=== PATIENT | female | born 1945 | race Caucasian/White ===

== ENCOUNTER → 2019-11-03 10:47 | Outpatient (BNVA) | payer MEDICARE, MEDICAID, SELFPAY | PROVIDERS: Family Provider Nurse Practitioner Family; PCP Nurse Practitioner Family; Visit Provider Nurse Practitioner | DX: M10.9 Gout, unspecified (principal) | CPT/HCPCS: 36415; 84550 ==

== ENCOUNTER → 2020-01-09 09:17 | Outpatient (BNVA) | payer MEDICARE, MEDICAID, SELFPAY | PROVIDERS: Family Provider Nurse Practitioner Family; PCP Nurse Practitioner Family; Visit Provider Nurse Practitioner Family | DX: E78.2 Mixed hyperlipidemia (principal); E11.9 Type 2 diabetes mellitus without complications; M10.9 Gout, unspecified; R53.83 Other fatigue; R94.6 Abnormal results of thyroid function studies; I10 Essential (primary) hypertension; E55.9 Vitamin D deficiency, unspecified | CPT/HCPCS: 80053; 80061; 81001; 82306; 83036; 84443; 84550; 85025 ==

== ENCOUNTER → 2020-02-13 13:18 | Outpatient (BNVA) | payer MEDICARE, MEDICAID, SELFPAY | PROVIDERS: Family Provider Nurse Practitioner Family; PCP Nurse Practitioner Family; Visit Provider Obstetrics & Gynecology | DX: N81.10 Cystocele, unspecified (principal); N81.9 Female genital prolapse, unspecified | CPT/HCPCS: 81000 ==

== ENCOUNTER → 2020-04-08 09:47 | Outpatient (BNVA) | payer MEDICARE, MEDICAID, SELFPAY | PROVIDERS: PCP Nurse Practitioner Family; Visit Provider Nurse Practitioner Family | DX: E11.9 Type 2 diabetes mellitus without complications (principal); I10 Essential (primary) hypertension; E78.2 Mixed hyperlipidemia; E55.9 Vitamin D deficiency, unspecified | CPT/HCPCS: 36415; 80053; 80061; 81001; 82306; 83036; 84443; 85025 ==

== ENCOUNTER 2020-05-15 14:30 | Outpatient (CLI) | payer MEDICARE, MEDICAID, SELFPAY ==
--- NOTE | 2020-05-15 14:35 | MM_ITS ---
WS: [id number] BILATERAL DIGITAL SCREENING MAMMOGRAPHY WITH CAD CLINICAL INFORMATION: SCREENING HISTORY: Screening mammogram. No current complaints. COMPARISON: April 26, 2019 TECHNIQUE: Bilateral CC and MLO views. FINDINGS: Scattered fibroglandular densities bilaterally. No suspicious focal mass, asymmetry, calcifications, or architectural distortion. No evidence of malignancy. Stable clustered calcifications left breast. MM/[id number] IMPRESSION: BI-RADS: 2-Benign FOLLOW UP: 1 Year Follow-up Recommend return to annual screening mammography.
== END 2020-05-15 14:31 | disposition home or self-care (01) ==
PROVIDERS: PCP Nurse Practitioner Family; Visit Provider Nurse Practitioner Family
DX: Z12.31 Encounter for screening mammogram for malignant neoplasm of breast (principal)
CPT/HCPCS: 77067

== ENCOUNTER → 2020-10-29 10:07 | Outpatient (BNVA) | payer MEDICARE, MEDICAID, SELFPAY | PROVIDERS: PCP Nurse Practitioner Family; Visit Provider Nurse Practitioner Family | DX: I10 Essential (primary) hypertension (principal); E11.9 Type 2 diabetes mellitus without complications; E55.9 Vitamin D deficiency, unspecified; E78.2 Mixed hyperlipidemia; M1A.09X0 Idiopathic chronic gout, multiple sites, without tophus (tophi) | CPT/HCPCS: 80053; 80061; 81003; 82306; 83036; 84443; 84550; 85025 ==

== ENCOUNTER → 2021-02-12 10:31 | Outpatient (BNVA) | payer MEDICARE, MEDICAID, SELFPAY | PROVIDERS: PCP Nurse Practitioner Family; Visit Provider Family Medicine | DX: E11.42 Type 2 diabetes mellitus with diabetic polyneuropathy (principal); R01.1 Cardiac murmur, unspecified; Z01.818 Encounter for other preprocedural examination | CPT/HCPCS: 71046 ==

== ENCOUNTER 2021-03-19 12:33 | Outpatient (CLI) | payer MEDICARE, MEDICAID, SELFPAY ==
--- NOTE | 2021-03-19 13:30 | USCV_ITS ---
Renuka Boyd Age: 76 Gender: F : 1945 Exam Date: 03/19/2021 13:14 Ordering Phys: Parish Reilly MD Technologist: Exam Location: [facility] [place] Indication: SOB BP: 125 / 76 HR: 53 Rhythm: Sinus Technical Quality: Adequate MEASUREMENTS (Male / Female) Normal Values 2D ECHO LV Diastolic Diameter PLAX 4.6 cm 4.2 - 5.9 / 3.9 - 5.3 cm LV Systolic Diameter PLAX 2.9 cm IVS Diastolic Thickness 1.1 cm 0.6 - 1.0 / 0.6 - 0.9 cm IVS Systolic Thickness 1.5 cm LVPW Diastolic Thickness 1.0 cm 0.6 - 1.0 / 0.6 - 0.9 cm LVPW Systolic Thickness 1.7 cm LVOT Diameter 2.0 cm LV Ejection Fraction 2D Teich 65.6 % LV Ejection Fraction MOD 2C 55.4 % LV Ejection Fraction 2C AL 56.1 % LA Diameter 3.8 cm LA Width 3.3 cm LA Height 4.3 cm RA Width 3.6 cm RA Height 4.4 cm Aorta at Sinotubular Diameter 2.3 cm M-MODE Aortic Annulus Diameter 2.9 cm LA Ao Ratio MM 1.3 DOPPLER AV Peak Velocity 97.0 cm/s LVOT Peak Velocity 59.0 cm/s AV Area Cont Eq vti 2.0 cm squared AV Area Cont Eq pk 2.0 cm squared MV Area PHT 5.0 cm squared Mitral E to A Ratio 1.0 MV E' Velocity 39.5 cm/s Mitral E to MV E' Ratio 9.9 Mitral E to LV E' Lateral Ratio 8.7 Mitral E to LV E' Septal Ratio 11.5 TR Peak Velocity 131.7 cm/s TR Peak Gradient 6.9 mmHg TV Peak E Velocity 108.0 cm/s Right Atrial Pressure 3.0 mmHg Pulmonary Artery Systolic Pressu 9.9 mmHg FINDINGS Left Ventricle Normal left ventricular size. LV systolic function is normal with EF of 50-55%.No regional wall motion abnormalities. Diastolic function is abnormal Right Ventricle The right ventricle is normal in size and function. Right Atrium The right atrium is normal in size. Left Atrium The left atrium is normal in size. Mitral Valve Grossly normal significant stenosis or prolapse. There is trace mitral regurgitation. Aortic Valve Grossly normal without significant stenosis. There is no aortic regurgitation. Tricuspid Valve Structurally normal tricuspid valve without significant stenosis or regurgitation. Insufficient TR jet to calculate RVSP Pulmonic Valve Structurally normal pulmonic valve without significant stenosis. There is no pulmonic regurgitation. Pericardium Normal pericardium without effusion. Aorta Normal ascending aorta dimension. CONCLUSIONS LV systolic function is normal with EF of 50-55% Diastolic function is abnormal Trace mitral regurgitation Compared to prior echocardiogram from 07/05/2014, no significant changes are noted Pete Isaac MD (Electronically Signed) Final Date: 19 March 2021 16:56 S
== END 2021-03-19 12:34 | disposition home or self-care (01) ==
LOC: RAD 12:39
PROVIDERS: PCP Nurse Practitioner Family; Visit Provider Family Medicine
DX: E11.42 Type 2 diabetes mellitus with diabetic polyneuropathy (principal); R01.1 Cardiac murmur, unspecified; R06.02 Shortness of breath
CPT/HCPCS: 93306

== ENCOUNTER → 2021-03-20 09:21 | Outpatient (BNVA) | payer MEDICARE, MEDICAID, SELFPAY | PROVIDERS: PCP Nurse Practitioner Family; Visit Provider Obstetrics & Gynecology | DX: N81.9 Female genital prolapse, unspecified (principal) | CPT/HCPCS: 87635 ==

== ENCOUNTER 2021-03-26 09:43 | Observation (INO) | payer MEDICARE, MEDICAID, SELFPAY ==
[2021-03-24 10:05] VITALS: BMI 29.6
--- NOTE | 2021-03-24 10:30 | P.ANESASSM_ITS ---
Pre-Anesthetic Assessment Pre-Anesthetic Assessment: Height/Weight: Height 1.7 m Weight 85.729 kg Preop Diagnosis: Vaginal vault prolapse stage 3 Proposed Procedure: Operation Date: 03/26/21 07:00 Proposed Procedures p Anterior Repair Anterior Colporrhaphy [id number] N81.9(Not Applicable) - MD meena Simpson Posterior Repair Posterior Colporrhaphy(Not Applicable) - MD meena Simpson Midurethral single incision sling(Not Applicable) - Lamberto Mart MD s Sacrospinous ligament fixation(Not Applicable) - Lamberto Mart MD Familial anesthetic complications: None Social: Social History: No alcohol and No tobacco Exam: Pre-Anes Outpt Exam: alert, oriented x 3, clear to auscultation bilaterally and regular rate & rhythm Airway: Cervical ROM: WNL MP: 3 Dentition: False CV/HEM: CV/HEM: HTN Comments: Echo 03/26 CONCLUSIONS LV systolic function is normal with EF of 50-55% Diastolic function is abnormal Trace mitral regurgitation Compared to prior echocardiogram from 07/05/2014, no significant changes are noted Knee pain prevents achieving 4 METS Metabolic: Metabolic: DM and Hyperlipidemia Anesthetic Plan: ASA status: 2 Anesthesia: General Risk of > 500 ml blood loss (7ml/kg in children): No PFSH Anesthesia PFSH: Medical History Abnormal results of thyroid function studies Chronic kidney disease, stage 3 (moderate) Diabetes mellitus, type II Patient is currently controlled with oral medications. Her last A1C in 08/24 was 6.9. Essential hypertension Gout Lower respiratory infection Mixed hyperlipidemia Restless legs syndrome S/p nephrectomy left Vaginal prolapse Vitamin D deficiency Surgical History S/P bladder repair over 40 years ago, [place] S/P hysterectomy S/P left knee arthroscopy Family History Brother Diabetes Hypertension Heart disease Family/Other Diabetes paternal aunt Breast cancer, Onset Age: 80 paternal aunt Father Hyperlipidemia Hypertension Heart disease Sister Stroke Daughter Thyroid condition Denies family history of Colon cancer Ovarian cancer CAD (coronary artery disease) Clotting disorder Anesthesia complication Bleeding disorder Uterine cancer Social History (Updated 03/24/21 @ 07:48 by Andie Machado RN) Smoking and tobacco status: former smoker Quit status (tobacco): has quit using tobacco Year quit tobacco: 1966 Alcohol intake: never Substance/Drug Use: never Data Anesthesia Cardiac Studies: No Data to Display
[2021-03-24 10:49] LABS: Add Urine Microscopic? NO; Charge for UA Resulting for Rev
[2021-03-24 10:59] LABS: Basophils % 0.6 %; Eosinophils # 0.1 10^3/uL (0.0-0.8); Eosinophils % 2.4 %; Hematocrit 46.2 % (37.0-47.0); Hemoglobin 15.1 g/dL (11.5-15.3); Lymphocytes % 37.4 %; Mean Corpuscular HGB Conc 32.7 g/dL (30.0-36.0); Mean Corpuscular Hemoglobin 29.7 pg (28.0-34.0); Mean Corpuscular Volume 90.8 fL (81-99); Mean Platelet Volume 9.3 fL (7.4-10.4); Monocytes # 0.5 10^3/uL (0.2-0.9); Neutrophils # 2.74 10^3/uL (1.8-7.7); Neutrophils % 50.4 %; Nucleated Red Blood Cells % 0 %; Platelet Count 230 10^3/cmm (130-400); Red Blood Count 5.09 10^6/uL (4.1-5.3); Red Cell Distribution Width 12.9 % (12.1-15.1); White Blood Count 5.4 10^3/uL (4.0-10.0)
[2021-03-24 11:08] LABS: Bilirubin Urine Neg (Negative); Blood Urine Neg (Negative); Glucose Urine UA Norm (Normal); Ketones Urine Negative (Negative); Leukocyte Esterase Urine Negative (Negative); Nitrate Urine Negative (Negative); Protein Urine Neg (Negative); Urine Appearance Clear (CLEAR); Urine Color Straw (Yellow); Urobilinogen Urine Norm (Negative); pH Urine 5 (5-7)
[2021-03-24 11:12] LABS: INR 0.97 (0.8-1.2)
[2021-03-24 11:18] LABS: Alanine Aminotransferase 17 U/L (0-33); Albumin Level 4.2 g/dL (3.5-5.2); Alkaline Phosphatase 83 IU/L (35-105); Anion Gap 13.9 (5-19); Aspartate Amino Transferase 20 U/L (0-32); Blood Urea Nitrogen 18 mg/dL (8-23); Calcium 9.4 mg/dL (8.5-10.5); Carbon Dioxide 27 mmol/L (22-29); Chloride 104 mmol/L (98-107); Globulin 2.6 g/dL (1.3-4.6); Glucose 119 mg/dL (65-115); Osmolality Calculated 293 mOsm/kg (285-295); Potassium 4.9 mmol/L (3.5-5.1); Sodium 140 mmol/L (136-145); Total Bilirubin 0.3 mg/dL (0.15-1.2); Total Protein 6.8 g/dL (6.6-8.7)
[2021-03-26] VITALS (14 sets, daily range): BP systolic 105–155; BP diastolic 54–85; PULSE 43–70; RESP 15–18; TEMP 36.4–37.1; O2SAT 97–100; BMI 29.6
--- NOTE | 2021-03-26 05:48 | ECG_ITS ---
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 Measurements Intervals Senath Rate: 56 P: 90 AR: 185 QRS: -8 QRSD: 85 T: 43 QT: 450 QTc: 437 Interpretive Statements SINUS BRADYCARDIA No previous ECG available for comparison Electronically Signed On 03-26-2021 18:36:08 CDT by Pete Isaac M.D. [id number]
[2021-03-26 06:18] LABS: Glucose Point of Care 118 mg/dL (70-110)
--- NOTE | 2021-03-26 06:27 | ANES.PAUD2 ---
Pre-Anesthetic Update Pre-Anesthetic Assessment: Date of Surgery/Procedure: 03/26/21 Preop Diagnosis: Vaginal vault prolapse stage 3 Proposed Procedure: Operation Date: 03/26/21 07:00 Proposed Procedures p Anterior Repair Anterior Colporrhaphy [id number] N81.9(Not Applicable) - Lamberto Mart MD s Posterior Repair Posterior Colporrhaphy(Not Applicable) - Lamberto Mart MD s Midurethral single incision sling(Not Applicable) - Lamberto Mart MD s Sacrospinous ligament fixation(Not Applicable) - Lamberto Mart MD Last Intake: Intake Last Liquid Date 03/25/21 Last Liquid Time 13:30 Last Solid Date 03/25/21 Last Solid Time 16:30 Labs Last 48hrs: Laboratory Results - last 48 hr 03/24/21 03/24/21 03/24/21 09:57 10:20 10:20 WBC 5.4 RBC 5.09 Hgb 15.1 Hct 46.2 MCV 90.8 MCH 29.7 MCHC 32.7 RDW 12.9 Plt Count 230 MPV 9.3 Neut % (Auto) 50.4 Lymph % (Auto) 37.4 [place] % (Auto) 9.0 Eos % (Auto) 2.4 Baso % (Auto) 0.6 Neut # (Auto) 2.74 Lymph # (Auto) 2.0 [place] # (Auto) 0.5 Eos # (Auto) 0.1 Baso # (Auto) 0.0 Nucleated RBC % (a uto) 0 Nucleated RBCs # 0.0 PT INR Sodium 140 Potassium 4.9 Chloride 104 Carbon Dioxide 27 Anion Gap 13.9 BUN 18 Creatinine 0.8 GFR Calculation Not Reportable Glucose 119 H POC Glucose Calculated Osmolal ity 293 Calcium 9.4 Total Bilirubin 0.3 AST 20 ALT 17 Alkaline Phosphata se 83 Total Protein 6.8 Albumin 4.2 Globulin 2.6 Urine Color Straw Urine Appearance Clear Urine pH 5 Ur Specific Gravit y 1.010 Urine Protein Neg Urine Glucose (UA) Norm Urine Ketones Negative Urine Blood Neg Urine Nitrate Negative Urine Bilirubin Neg Urine Urobilinogen Norm Ur Leukocyte [place] Negative Blood Type Rho(D) Type Antibody Screen 03/24/21 03/24/21 03/26/21 10:20 10:20 06:14 WBC RBC Hgb Hct MCV MCH MCHC RDW Plt Count MPV Neut % (Auto) Lymph % (Auto) [place] % (Auto) Eos % (Auto) Baso % (Auto) Neut # (Auto) Lymph # (Auto) [place] # (Auto) Eos # (Auto) Baso # (Auto) Nucleated RBC % (a uto) Nucleated RBCs # PT 13.20 INR 0.97 Sodium Potassium Chloride Carbon Dioxide Anion Gap BUN Creatinine GFR Calculation Glucose POC Glucose 118 H Calculated Osmolal ity Calcium Total Bilirubin AST ALT Alkaline Phosphata se Total Protein Albumin Globulin Urine Color Urine Appearance Urine pH Ur Specific Gravit y Urine Protein Urine Glucose (UA) Urine Ketones Urine Blood Urine Nitrate Urine Bilirubin Urine Urobilinogen Ur Leukocyte Beth ase Blood Type O Negative Rho(D) Type Negative / 0 Antibody Screen Negative Vitals: Temperature 97.6 F 03/26/21 05:56 Temperature Source Temporal Artery S can 03/26/21 05:56 Pulse Rate 61 03/26/21 05:56 Pulse Rhythm 03/26/21 05:57 Pulse Strength 3+ Normal 03/26/21 05:57 Respiratory Rate 18 03/26/21 05:56 Blood Pressure 155/85 03/26/21 05:56 Blood Pressure Ayleen n 108 03/26/21 05:56 Pulse Oximetry 97 03/26/21 05:56 Oxygen Delivery Me thod 03/26/21 05:56 Other Pertinent Information: Other Pertinent Information: NPO greater than 8 hours, no new issues Cardiac Studies: No Data to Display
[2021-03-26] MEDS: sodium chloride 0.9% 500 ML IV (06:30)
[2021-03-26] MEDS: enoxaparin 30 mg/0.3 mL Syringe SUBCUT (06:32)
[2021-03-26] MEDS: scopolamine 1.5 Patch 1 PATCH TRANSDERMA (06:35)
--- NOTE | 2021-03-26 06:58 | W.PM.OPSUD ---
Surgery/Procedure H&P Update DATE OF PROCEDURE: March 26, 2021 DATE H&P PERFORMED: 03/24/21 H&P UPDATE INFORMATION: I have reviewed H&P completed within last 30 days, I have examined patient prior to procedure and No changes to prior documentation PREOP DIAGNOSIS: Vaginal vault prolapse stage 3 PLANNED PROCEDURE: Operation Date: 03/26/21 07:00 Proposed Procedures p Anterior Repair Anterior Colporrhaphy [id number] N81.9(Not Applicable) - Lamberto Mart MD s Posterior Repair Posterior Colporrhaphy(Not Applicable) - Lamberto Mart MD s Midurethral single incision sling(Not Applicable) - Lamberto Mart MD s Sacrospinous ligament fixation(Not Applicable) - Lamberto Mart MD
[2021-03-26] MEDS: sodium chloride 0.9% 1,000 ML 30 ML IV (07:03)
[2021-03-26] MEDS: estrogens Conjugated Cream 30 gm 1 APPLIC VAGINAL (09:28)
--- NOTE | 2021-03-26 09:39 | P.OP_ITS ---
Operative Report Date of procedure: March 26, 2021 Pre-op Diagnosis: Vaginal vault prolapse stage 3 Post-op diagnosis: same Procedure Done: Anterior colporrhaphy augmented with allograft. Single incision mid urethral sling. Posterior colporrhaphy. Sacrospinous fixation. Cystoscopy. Surgeon: Lamberto Mart MD Anesthesia: General Estimated blood loss (mL): 50 IV fluids (mL): 1,200 Urine output (mL): 200 Complications: None Condition: stable Disposition: PACU Brief History: 76-year-old female 58-year-old female with vaginal vault prolapse stage III Procedure: After obtaining informed consent, the patient was taken to the operating room and placed in the supine position, given general anesthesia, and prepped and draped in sterile fashion. The abdomen, vulva and vagina were prepped and draped in a sterile manner. A time out procedure was performed. The anterior vaginal mucosa beneath the midurethra was infiltrated with 0.5% Marcaine with epinephrine. A vertical midline incision was made beneath the midurethra, nearly 1.5 cm length. Careful submucosal dissection was performed bilaterally up to the interior portion of the inferior pubic ramus. The insertion of adductor longus tendon on the patient?s pubic ramus was identified as reference land cathryn. Palpated the notch along the internal edge of ischiopubic ramus where the adductor longus tendon and the inferior pubic ramus meet. The Altis single incision sling (SIS) was selected. With thin porcine graft the mesh of the sling was lined anteriorly and posteriorly with the graft. Then the needle of the SIS inserted aiming at the location of this notch. One of the integrated self-fixating tips place onto the needle by sliding it over the end of the needle. The needle/sling assembly was inserted toward the location of identified reference notch making sure that the flat of the handle is perpendicular to the desired path. The needle was tracked along the posterior surface of the ischiopubic ramus until the midline cathryn on the mesh is approximately at the midline position under the urethra. The needle was removed and the same was repeated on the contralateral side until the appropriate sling tension under the urethra was achieved ensuring that the mesh lays flat. The needle was removed and vaginal incision was closed in a running interlocking fashion with 2-0 Vicryl. The vaginal mucosa was then injected in the midline with normal saline. The vaginal mucosa was scored in the midline with the Bovie approximately 1 cm medi al to the urethral meatus to 1 cm distal to the vaginal cuff. This vaginal mucosa was then undermined and then incised in the midline with the Metzenbaum scissors. The lateral aspects of the vaginal mucosa were then grasped with the Allis clamps and the vaginal mucosa was then dissected off the underlying fascia with the Metzenbaum scissors. Again, there was noted to be quite a bit of oozing at the incision, which was controlled with cautery. After adequate dissection was performed, bilaterally. An ACell MatriStem Pelvic Floor Matrix is modified at time of application to fit spacea, 3 x 4 cm piece . MatriStem PFM placed in front of cystocele ready to be implanted with the Basement Membrane facing the vagina mucosa. Suture is placed at distal end of graft and placed towards vaginal cuff. Final suture is placed on proximal portion of the graft to complete the placement overlying the bladder. Then Interrupted vertical mattress sutures of 0 Vicryl were used to elevate the cystocele superiorly. The excessive vaginal mucosa was then trimmed with the Metzenbaum scissors and the vaginal mucosa was then reapproximated in the running interlocking fashion with 2-0 Vicryl. Then the posterior vaginal mucosa is opened in the routine fashion as described previously in Posterior Repair. A finger is inserted through the incision in the posterior vaginal mucosa, dissecting out the rectovaginal space (RVS). The right rectal pillar (RRP) is identified. The rectal pillar can be bluntly perforated either with the finger and with the tip of a long Meeta clamp. A Breliny- Navjazlyn retractor is used for exposing the rectovaginal space in order to enter the pararectal space with retraction of the cardinal ligament, vagina, and rectum. Displacing the rectum to the left and the cardinal ligament and ureter anteriorly. A sponge dissector is used to bluntly dissect the sacrospinous ligament removing areolar tissue. The ischial spine was palpated directly, and a area approximately 2 cm medial to the spine was selected for insertion of the Anchorsure transvaginal sacrospinous fixation system. One end of the suture of Anchoresure system inserted through the sacrospinous ligament is placed through the muscular layer of the vagina. In a similar manner, the second suture is placed. The opposite end of the suture in the sacrospinous ligament is left free and held on a small hemostat. Then traction on this suture will draw the vaginal vault directly to the ligament, where a square knot affixes it to the sacrospinous ligament. After the chinyere stich is tied the second safety stich is tied. Then the posteriror colporrhaphy/vaginal repair is carried out in routine fashion. A posterior colpoperineorrhaphy was performed with Allis clamps to grasp hymenal caruncles to allow 2-3 fingerbreadths caliber; infiltrated with 1% Lidocaine with epinephrine before triangular incision to excise fibrotic subdermal rectovaginal tissue from old perineal laceration. Fascia dissected off towards vaginal cuff and deemed weakened and thinned-out in midline; colporrhaphy performed with interrupted mattress 0-Vicryl sutures then perineal body after a separate crown stitch with 0-Vicryl performed. Field irrigated; hemostasis secured before vaginal incision closed running-locked with 3-0 Vicryl. Then the Lang catheter was removed and cystoscope was inserted. The bladder was filled with sterile water. Complete evaluation of the bladder mucosa was performed noting no lacerations, dimpling, tears, bleeding of the mucosa or muscular layers. Both ureteral orifices were identified. Prompt excretion of urine from both ureteral orifices was noted. Cystoscope was withdrawn. The Lang catheter was replaced. Excellent hemostasis was obtained. A vaginal pack is placed overnight as postoperative support for the vaginal tissues after graft placement and closure of vaginal incisions. Sponge, lap, needle, and instrument counts were correct times three. The patient was taken to the recovery room, awake and in stable condition.
[2021-03-26] MEDS: ketorolac 30 mg/mL INJ IVP ×3 (11:56→21:44)
--- NOTE | 2021-03-26 16:30 | PC.NURSE ---
Ambulated around nurse station x1 lap without difficulty. Pt denies any lightheadedness or dizziness.
--- NOTE | 2021-03-26 17:24 | ANE.PACU2 ---
Inpatient post-anesthesia follow up: Airway intact: Yes Vital signs: Temperature 97.6 F Pulse Rate 47 Respiratory Rate 18 Blood Pressure 114/59 Pulse Oximetry 98 Oxygen Delivery Me thod Room Air Oxygen Flow Rate 8 Fraction of Inspir ed Oxygen Hydration adequate: Yes Nausea and vomiting: No Pain level: 2 Mental status: Baseline
[2021-03-26] MEDS: dextrose 5%-lactated ringers 1,000 ML 125 ML IV (17:31)
[2021-03-26] MEDS: docusate sodium 100 mg Capsule PO (18:14)
[2021-03-27] MEDS: dextrose 5%-lactated ringers 1,000 ML 125 ML IV (01:39)
[2021-03-27 04:38] VITALS: BP 101/60; PULSE 71; RESP 18; TEMP 36.8
[2021-03-27 04:41] LABS: Hematocrit 36.4 % (37.0-47.0); Hemoglobin 11.8 g/dL (11.5-15.3); Mean Corpuscular HGB Conc 32.4 g/dL (30.0-36.0); Mean Corpuscular Hemoglobin 29.8 pg (28.0-34.0); Mean Corpuscular Volume 91.9 fL (81-99); Mean Platelet Volume 9.4 fL (7.4-10.4); Platelet Count 169 10^3/cmm (130-400); Red Blood Count 3.96 10^6/uL (4.1-5.3); White Blood Count 6.3 10^3/uL (4.0-10.0)
[2021-03-27] MEDS: ibuprofen 800 mg tablet PO (05:52)
--- NOTE | 2021-03-27 08:10 | PM.OBGYDC ---
Discharge Providers SENIOR PROCESS ANALYST Date of Admission: 03/26/21 09:43 Date of Discharge: 03/27/21 Attending Provider at Admission: Lamberto Mart MD Attending Provider at Discharge: Lamberto Mart MD Primary Care Provider: KENIA Wood Reason for Visit Reason for Visit: Sacrospinous ligament fixation Hospital Course Hospital Course Mrs. Boyd 76 with vaginal vault prolapse admitted for an anterior and posterior colporrhaphy, mid urethral sling and sacrospinous fixation. Procedures were performed without complications. Overnight observation was uneventful. PVR within normal limits. She is afebrile and hemodynamically stable. Tolerating diet well ambulating without difficulty. Physical Exam Narrative: EXAM NARRATIVE: GA: Alert and oriented ?3. HEENT: WNL. Heart: Regular rate and rhythm. Lungs: Clear to auscultation bilaterally. Abdomen: Bowel sounds present, nontender, minimal tenderness, incision clean and dry, no redness, pain or edema. CLINICAL SERVICES DIRECTOR: No bleeding. Extremities: No edema, no cyanosis, no calves pain. Urinary Catheter Management^: Lang: Cath Placed During This Visit: yes, but has since been removed by the nurse Reason for Continuing Indwelling Catheter: Decision to DC Catheter Urinary Catheter Date of Insertion: 03/26/21 Urinary Catheter Time of Insertion: 07:35 Date Urinary Catheter Removed: 03/27/21 Time Urinary Catheter Discontinued: 04:39 Discharge Data Data Completed and Pending: Pending at discharge Category Date Time Status ES surgery / GI i mages Routine Exams 03/26/21 08:23 Taken Labs from last 24 hours 03/27/21 04:36 WBC 6.3 RBC 3.96 L Hgb 11.8 Hct 36.4 L MCV 91.9 MCH 29.8 MCHC 32.4 RDW 13.0 Plt Count 169 MPV 9.4 Vitals: Last Vital Signs Temp 98.2 F 03/27/21 04:38 Pulse 71 03/27/21 04:38 Resp 18 03/27/21 04:38 BP 101/60 03/27/21 04:38 Pulse Ox 98 03/26/21 11:40 Discharge Plan Discharge Patient Disposition: Home Condition: Stable Prescriptions: New acetaminophen 325 mg capsule 325 mg PO Q4H PRN (Reason: fever or pain) Qty: 60 RF: 0 ibuprofen 800 mg tablet 800 mg PO TID PRN (Reason: pain) Qty: 60 RF: 0 docusate sodium [Colace] 100 mg capsule 100 mg PO BID Qty: 60 RF: 0 hydrocodone-acetaminophen 5-325 mg tablet 1 tab PO Q4H Qty: 20 RF: 0 Continued (DME) diabetic shoes See Rx Instructions .Route .MEDSUPPLY Qty: 2 RF: 0 Janumet 50-1,000 mg tablet 1 tab PO ONCE RF: 0 (DME) Diabetic shoes with inserts See Rx Instructions .Route .MEDSUPPLY Qty: 1 RF: 0 allopurinol 300 mg tablet 300 mg PO DAILY RF: 0 (DME) Contour Test Strips Strip See Rx Instructions .ROUTE .MEDSUPPLY Qty: 100 RF: 5 (DME) blood sugar diagnostic Strip See Rx Instructions .ROUTE .MEDSUPPLY Qty: 100 RF: 6 (DME) Diabetic shoes with inserts Qty: 1 RF: 0 cholecalciferol (vitamin D3) 1,250 mcg (50,000 unit) capsule 50,000 unit PO .weekly 90 Days Qty: 12 RF: 1 potassium chloride 10 mEq tablet extended release 10 meq PO DAILY RF: 0 gabapentin 300 mg capsule 300 mg PO DAILY RF: 0 furosemide 20 mg tablet 20 mg PO DAILY RF: 0 atenolol 50 mg tablet 50 mg PO DAILY RF: 0 Discharge Orders: Discharge Order (Routine); Ordered 03/27/21 Ordered By: Lamberto Mart Referrals: Lamberto Mart MD [Physician] - 2 weeks Discharge Diet: Soft Mechanical Discharge Activity: Increase activity as tolerated Patient Instructions: Anterior Vaginal Repair (DC), Bladder Sling Procedures (DC), Posterior Vaginal Repair (DC), OB Abdominal Surgery - [facility], OB Discharge Report, OB Anesthesia Instructions, OB Food/Drug Interaction Guide, Opioid Safety Activity Restrictions/Additional Instructions: 1. Please call [facility] on next working day to make your post-operative appointment in 2 weeks. 2. Please stay home until you come back to the clinic on first post-operative check up. 3. Please follow instructions on your medications CAREFULLY. 4. If you have abdominal incision, do not cover it unless dressing is necessary because of drainage. OK to shower, but avoid bath. Leave steri-strips until they fall off. If they are still on one week after surgery, you may remove them. 5. If you had vaginal surgery or vaginal repair, Dr. Mart may instruct you to take SITZ bath. 6. Yellow, blood tinged odorous vaginal discharge is usually normal after hysterectomy or vaginal surgeries. 7. No sexual intercourse, tampons, or douches until you are completely released from the post-operative care. 8. Avoid constipation by eating right and maybe using some Metamucil or Milk of Magnesia. 9. All prescription refills are given during the working hours. Please do no wait till it runs out. Call the clinic at [phone] before your medication runs out. The clinic will get in touch with your doctor to prescribe medications if necessary. 10. Please remain within 40 mile radius from our hospital because emergencies do happen now and then during the post-operative period. 11. If you have stairs at home, take one step at a time slowly and minimize the number of trips. It helps to stay in one floor for the next few days. No lifting except what you can lift by one hand until you are released from the post-operative care. 12. Driving is discouraged until you are well healed. It may be 3-4 weeks before you feel strong enough to drive. You should be able to turn and look through the rear window without pain and you should be able to push the brake pedal very hard without pain before you drive. No fast rules, but SAFETY should be your primary concern. DO NOT drive if you are on sedating medications such as narcotics. 13. Call the clinic (during working hours) to make urgent appointment or go to the Emergency room, if any of the following occurs: i. Vaginal bleeding becomes heavy, more than a period. ii. Incision becomes red and sore, or drains pus. iii. Your temperature is over 100.4 or you have chill. iv. IV site becomes red and swollen (a little ``knot?? is usually OK) v. Persistent nausea and vomiting vi. Persistent constipation or diarrhea vii. Rash or allergic reaction to medications. Discharge Attestations SENIOR PROCESS ANALYST Time Spent in Discharge Care*: greater than 30 min Coding Level of Care Code Acute National Van Owner Operator for 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
[2021-03-27 10:00] VITALS: BP 100/63; PULSE 64; RESP 16; TEMP 36.7
== END 2021-03-27 10:15 | disposition home or self-care (01) ==
LOC: OBGYN 09:54
PROVIDERS: Admitting Provider Obstetrics & Gynecology; PCP Nurse Practitioner Family; Visit Provider Obstetrics & Gynecology
PROC: 0JQC0ZZ Repair Pelvic Region Subcutaneous Tissue and Fascia, Open Approach (ICD-10-PCS; CPT 57240; principal; 2021-03-26 07:00)
PROC: (CPT 57250; 2021-03-26 07:00)
PROC: (CPT 57288; 2021-03-26 07:00)
PROC: (CPT 57282; 2021-03-26 07:00)
DX: N81.10 Cystocele, unspecified (principal); Z90.710 Acquired absence of both cervix and uterus; E11.22 Type 2 diabetes mellitus with diabetic chronic kidney disease; I12.9 Hypertensive chronic kidney disease with stage 1 through stage 4 chronic kidney disease, or unspecified chronic kidney disease; N18.30 Chronic kidney disease, stage 3 unspecified; E78.2 Mixed hyperlipidemia; Z79.84 Long term (current) use of oral hypoglycemic drugs; Z90.5 Acquired absence of kidney; Z82.49 Family history of ischemic heart disease and other diseases of the circulatory system; Z83.3 Family history of diabetes mellitus; Z87.891 Personal history of nicotine dependence
CPT/HCPCS: 57260; 57282; 57288; 36415; 36416; 51798; 80053; 81003; 82962; 85025; 85027; 85610; 86850; 86900; 93005; 96365; 96372; C1713; C1762; G0378; J0694; J1650; J1885; J2405; J2704; J3010; J3490; J7030; J7040; Q9968

== ENCOUNTER 2021-05-19 11:33 | Outpatient (CLI) | payer MEDICARE, MEDICAID, SELFPAY ==
--- NOTE | 2021-05-19 11:41 | MM_ITS ---
WS: [id number] SCREENING DIGITAL MAMMOGRAM WITH CAD HISTORY: SCREENING COMPARISON: 05/15/2020, 04/03/2019 Bilateral CC and MLO views submitted. Computer aided detection analyzed. Breast composition: There are scattered areas of fibroglandular density. Calcifications in each breast. There is a row of calcifications in the central LEFT breast which is s table since 04/03/2019. MM/[id number] IMPRESSION: BI-RADS: 2-Benign FOLLOW UP: 1 Year Follow-up
== END 2021-05-19 11:34 | disposition home or self-care (01) ==
LOC: RADSHAW 11:39
PROVIDERS: PCP Nurse Practitioner Family; Visit Provider Nurse Practitioner Family
DX: Z12.31 Encounter for screening mammogram for malignant neoplasm of breast (principal)
CPT/HCPCS: 77067

== ENCOUNTER → 2021-06-23 10:06 | Outpatient (BNVA) | payer MEDICARE, MEDICAID, SELFPAY | PROVIDERS: PCP Nurse Practitioner Family; Visit Provider Nurse Practitioner Family | DX: E11.9 Type 2 diabetes mellitus without complications (principal); E55.9 Vitamin D deficiency, unspecified; E78.2 Mixed hyperlipidemia; I10 Essential (primary) hypertension | CPT/HCPCS: 80053; 80061; 81003; 82306; 83036; 83550; 84443; 85025 ==

== ENCOUNTER → 2021-09-30 16:05 | Outpatient (BNVA) | payer MEDICARE, MEDICAID, SELFPAY | PROVIDERS: PCP Nurse Practitioner Family; Visit Provider Obstetrics & Gynecology | DX: R39.89 Other symptoms and signs involving the genitourinary system (principal) | CPT/HCPCS: 81000 ==

== ENCOUNTER → 2021-10-13 11:09 | Outpatient (BNVA) | payer MEDICARE, MEDICAID, SELFPAY | PROVIDERS: PCP Nurse Practitioner Family; Visit Provider Nurse Practitioner Family | DX: E11.9 Type 2 diabetes mellitus without complications (principal); R79.89 Other specified abnormal findings of blood chemistry; E55.9 Vitamin D deficiency, unspecified; E78.2 Mixed hyperlipidemia; M1A.09X0 Idiopathic chronic gout, multiple sites, without tophus (tophi); I10 Essential (primary) hypertension | CPT/HCPCS: 80053; 80061; 81003; 82306; 83036; 84443; 84550; 85025 ==

== ENCOUNTER 2021-11-19 08:34 | Outpatient (CLI) | payer MEDICARE, MEDICAID, SELFPAY ==
[2021-11-19] MEDS: iohexol 300 mg/mL 100 mL Btl IV (08:53)
--- NOTE | 2021-11-19 11:00 | CT_ITS ---
WS: [id number] CT abdomen pelvis w con* [id number] REASON FOR EXAM: K46.9 - Unspecified abdominal hernia without obstruction ... IV CONTRAST ADMINISTERED: 95 mL of Omnipaque 300 TOTAL EXAM DLP: 1259.[address] scans at [facility] use at least one of these dose optimization techniques: automat ed exposure control; mA and/or kV adjustment per patient size (includes targeted exams where dose is matched to clinical indication); or iterative reconstruction. FINDINGS: The examination is unchanged compared to previous study of 07/05/2014. The liver, spleen, and pancreas are unremarkable. Adrenals are normal. Left kidney is absent. Small cyst in the right kidney. Right kidney is otherwise unremarkable. No mass or adenopathy. No focal fluid collection or free fluid. No bowel abnormality. Normal appendix. Tiny, 3 x 4 mm, umbilical hernia containing fat. PELVIS: No mass or adenopathy. No free fluid or focal fluid collection. Previous hysterectomy. No bladder abnormality. CT/CT abdomen pelvis w con* [id number] IMPRESSION: Stable abdomen and pelvis with no significant abnormality.
== END 2021-11-19 08:35 | disposition home or self-care (01) ==
LOC: RAD 08:38
PROVIDERS: PCP Nurse Practitioner Family; Visit Provider Obstetrics & Gynecology
DX: K46.9 Unspecified abdominal hernia without obstruction or gangrene (principal)
CPT/HCPCS: 74177

== ENCOUNTER 2021-12-18 07:49 | Outpatient (CLI) | payer MEDICARE, MEDICAID, SELFPAY ==
--- NOTE | 2021-12-18 08:30 | US_ITS ---
WS: [id number] RIGHT UPPER QUADRANT ULTRASOUND HISTORY: R14.0 - Abdominal distension (gaseous) COMPARISON: None available. Liver: 14.6 cm in length. Normal size liver. Very mild hepatic steatosis. There is an area of focal f atty sparing adjacent to the gallbladder which is a typical location. Portal Vein: Normal hepatopetal flow with monophasic waveform. Gallbladder: Normally distended gallbladder with no stones or wall thickening. CBD: 0.5 cm Pancreas: Normal size and echogenicity. Right kidney: 11.7 cm in length. Normal size kidney. No hydronephrosis or solid mass. There is a simp le cortical cyst in the mid kidney measuring 1.1 x 1.2 x 1.2 cm. Aorta and IVC: Unremarkable abdominal aorta and IVC. No ascites. US/US liver [id number] IMPRESSION: 1. Normal gallbladder. 2. Mild hepatic steatosis with focal fatty sparing adjacent to the gallbladder . 3. Simple cyst RIGHT kidney.
== END 2021-12-18 07:50 | disposition home or self-care (01) ==
LOC: RAD 07:49
PROVIDERS: PCP Nurse Practitioner Family; Visit Provider Surgery
DX: R14.0 Abdominal distension (gaseous) (principal)
CPT/HCPCS: 76705

== ENCOUNTER → 2022-01-26 09:26 | Outpatient (BNVA) | payer MEDICARE, MEDICAID, SELFPAY | PROVIDERS: PCP Nurse Practitioner Family; Visit Provider Nurse Practitioner | DX: E78.2 Mixed hyperlipidemia (principal); R79.89 Other specified abnormal findings of blood chemistry; E55.9 Vitamin D deficiency, unspecified; I10 Essential (primary) hypertension; E11.9 Type 2 diabetes mellitus without complications | CPT/HCPCS: 80053; 80061; 82306; 83036; 84443; 85025 ==

== ENCOUNTER → 2022-03-24 09:52 | Outpatient (BNVA) | payer MEDICARE, MEDICAID, SELFPAY | PROVIDERS: PCP Nurse Practitioner Family; Visit Provider Orthopaedic Surgery | DX: M17.0 Bilateral primary osteoarthritis of knee (principal) | CPT/HCPCS: 20610; 99212; 99213; J0702; J3490 ==

== ENCOUNTER → 2022-04-13 13:34 | Outpatient (BNVA) | payer MEDICARE, MEDICAID, SELFPAY | PROVIDERS: PCP Nurse Practitioner Family; Visit Provider Podiatrist Foot & Ankle Surgery | DX: E11.42 Type 2 diabetes mellitus with diabetic polyneuropathy (principal); M25.872 Other specified joint disorders, left ankle and foot; I73.9 Peripheral vascular disease, unspecified; Q82.8 Other specified congenital malformations of skin; M79.673 Pain in unspecified foot | CPT/HCPCS: 99214 ==

== ENCOUNTER → 2022-05-20 11:48 | Outpatient (BNVA) | payer MEDICARE, MEDICAID, SELFPAY | PROVIDERS: PCP Nurse Practitioner Family; Visit Provider Nurse Practitioner Family | DX: E11.9 Type 2 diabetes mellitus without complications (principal) | CPT/HCPCS: 80048; 83036; 86140 ==

== ENCOUNTER 2022-06-02 12:32 | Outpatient (CLI) | payer MEDICARE, MEDICAID, SELFPAY ==
--- NOTE | 2022-06-02 12:43 | XR_ITS ---
WS: [id number] DEXA (DUAL ENERGY X-RAY ABSORPTIOMETRY) Bone mineral density was performed using a [employer] machine. HISTORY: M85.80 - Other specified disorders of bone density and st... COMPARISON: None available. Lumbar spine BMD (L1-L4): 1.196 g/cm2 T score: 0.1 Z score: 1.0 Total hip BMD: Left: 0.711 g/cm2. T score: -2.4 Z score: -1.2 Right: 0.794 g/cm2. T score: -1.7 Z score: -0.6 10 year probability of a major osteoporotic fracture is 19.8%. XR/XR DEXA axial skeleton* [id number] IMPRESSION: OSTEOPENIA based upon the WHO classification for females.
== END 2022-06-02 12:33 | disposition home or self-care (01) ==
LOC: RAD 12:33
PROVIDERS: PCP Nurse Practitioner Family; Visit Provider Nurse Practitioner Family
DX: M85.80 Other specified disorders of bone density and structure, unspecified site (principal)
CPT/HCPCS: 77080

== ENCOUNTER → 2022-06-17 15:06 | Outpatient (BNVA) | payer MEDICARE, MEDICAID, SELFPAY | PROVIDERS: PCP Nurse Practitioner Family; Visit Provider Podiatrist Foot & Ankle Surgery | DX: M25.872 Other specified joint disorders, left ankle and foot (principal); M25.871 Other specified joint disorders, right ankle and foot | CPT/HCPCS: 73630; 99213; 99214 ==

== ENCOUNTER → 2022-08-19 12:48 | Outpatient (BNVA) | payer MEDICARE, MEDICAID, SELFPAY | PROVIDERS: PCP Nurse Practitioner Family; Visit Provider Podiatrist Foot & Ankle Surgery | DX: M25.872 Other specified joint disorders, left ankle and foot (principal); M25.871 Other specified joint disorders, right ankle and foot | CPT/HCPCS: 99213 ==

== ENCOUNTER → 2022-09-10 13:20 | Outpatient (BNVA) | payer MEDICARE, MEDICAID, SELFPAY | PROVIDERS: PCP Nurse Practitioner Family; Visit Provider Obstetrics & Gynecology | DX: R10.2 Pelvic and perineal pain (principal); Z90.722 Acquired absence of ovaries, bilateral; Z90.710 Acquired absence of both cervix and uterus | CPT/HCPCS: 76857 ==

== ENCOUNTER → 2022-09-21 09:02 | Outpatient (BNVA) | payer MEDICARE, MEDICAID, SELFPAY | PROVIDERS: PCP Nurse Practitioner Family; Visit Provider Nurse Practitioner Family | DX: I10 Essential (primary) hypertension (principal); E11.42 Type 2 diabetes mellitus with diabetic polyneuropathy; E78.5 Hyperlipidemia, unspecified | CPT/HCPCS: 80053; 80061; 83036 ==

== ENCOUNTER → 2022-10-28 15:38 | Outpatient (BNVA) | payer MEDICARE, MEDICAID, SELFPAY | PROVIDERS: PCP Nurse Practitioner Family; Visit Provider Orthopaedic Surgery | DX: M17.11 Unilateral primary osteoarthritis, right knee (principal) | CPT/HCPCS: 73560; 73565; 99213 ==

== ENCOUNTER 2022-12-01 13:54 | Outpatient (CLI) | payer MEDICARE, MEDICAID, SELFPAY ==
--- NOTE | 2022-12-01 15:30 | CT_ITS ---
WS: [id number] CT RIGHT KNEE, NONCONTRAST TECHNIQUE: Noncontrast CT of the RIGHT knee to include the RIGHT hip and ankle. CLINICAL INFORMATION: M17.11 - Unilateral primary osteoarthritis, right knee COMPARISON: None. DLP: 1029.[address] scans at [facility] use at least one of these dose optimization techniques: automated e xposure control; mA and/or kV adjustment per patient size (includes targeted exams where dose is matc hed to clinical indication); or iterative reconstruction. FINDINGS: Advanced tricompartmental arthritis RIGHT knee worse medial joint compartment. Hypertrophic changes a long the joint line. Small suprapatellar effusion. Degenerative arthritis sacroiliac joints. Lobulated popliteal cyst with internal debris measuring 2.[address]/CT knee RT MARIA G IMPRESSION: Images obtained for preoperative purposes.
== END 2022-12-01 13:55 | disposition home or self-care (01) ==
LOC: RAD 13:57
PROVIDERS: PCP Nurse Practitioner Family; Visit Provider Orthopaedic Surgery
DX: M17.11 Unilateral primary osteoarthritis, right knee (principal); Z01.818 Encounter for other preprocedural examination; R00.1 Bradycardia, unspecified
CPT/HCPCS: 73700; 93005

== ENCOUNTER 2022-12-07 11:59 | Observation (INO) | payer MEDICARE, MEDICAID, SELFPAY ==
[2022-12-01 12:58] VITALS: BMI 31.3
--- NOTE | 2022-12-01 13:11 | ECG_ITS ---
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 Measurements Intervals [place] Rate: 68 P: 79 HI: 187 QRS: 7 QRSD: 89 T: 41 QT: 421 QTc: 451 Interpretive Statements SINUS RHYTHM WITH OCCASIONAL SUPRAVENTRICULAR PREMATURE COMPLEXES LOW QRS VOLTAGE IN PRECORDIAL LEADS [QRS DEFLECTION < 1.0 mV IN CHEST LEADS] ANTEROSEPTAL MYOCARDIAL INFARCTION , OF INDETERMINATE AGE [40+ ms Q WAVE IN V1-V4] Compared to ECG 03/26/2021 06:22:59 Low QRS voltage now present Myocardial infarct finding now present Sinus bradycardia no longer present Electronically Signed On 12-02-2022 0:49:10 CDT by Marybel Katz M.D. [id number]
[2022-12-01 13:32] LABS: Blood Urea Nitrogen 16 mg/dL (8-23); Calcium 9.3 mg/dL (8.5-10.5); Carbon Dioxide 24 mmol/L (22-29); Chloride 103 mmol/L (98-107); Glucose 167 mg/dL (65-115); Osmolality Calculated 293 mOsm/kg (285-295); Sodium 139 mmol/L (136-145)
--- NOTE | 2022-12-01 13:51 | P.ANESASSM_ITS ---
Pre-Anesthetic Assessment Height/Weight: Height 1.7 m Weight 90.718 kg Preop Diagnosis: Vaginal vault prolapse stage 3 Operation Date: 12/07/22 07:00 Proposed Procedures p right total knee arthroplasty: 24356,M17.11(Right) - Chidi Gusman MD Familial anesthetic complications: none Was Beta Qasim taken within 24 hours: Yes Was Clonidine taken within 24 hours: N/A Social No alcohol and No tobacco Exam alert, oriented x 3, clear to auscultation bilaterally and regular rate & rhythm Airway Submandibular: within normal limits Cervical ROM: within normal limits Mallampati: Class II Dentition: false CV/HEM Hypertension GI Gastroesophageal Reflux Disease Metabolic Diabetes Mellitus Musc/skel Osteoarthritis/DJD Neuropsych Neuropathy Anesthetic Plan ASA status: 3 Anesthesia: Regional (specify below) (SAB with adductor blk) Medications/Allergies Home Medications Medication Instructions Recorded Confirmed Last Taken Type blood sugar diagnostic (Contour #100 ea 09/11/19 10/28/22 Unknown Rx Test Strips) Diabetic shoes with 3 set of #1 ea 04/13/22 10/28/22 Unknown Rx insoles Custom Insoles #1 ea 06/17/22 10/28/22 Unknown Rx blood sugar diagnostic #100 ea 08/06/22 10/28/22 Unknown Rx blood-glucose meter #1 ea 08/06/22 10/28/22 Unknown Rx lancets 33 gauge (BD Ultra Fine #100 ea 08/06/22 10/28/22 Unknown Rx Lancets) atenolol 50 mg tablet 50 mg PO DAILY #90 tabs 09/21/22 12/01/22 1 Day Ago Rx ~11/30/22 furosemide 20 mg tablet 20 mg PO DAILY #90 tabs 09/21/22 12/01/22 1 Day Ago Rx ~11/30/22 sitagliptin phosphate 50 mg tablet 50 mg PO DAILY #90 tabs 09/21/22 12/01/22 1 Day Ago Rx (Januvia) ~11/30/22 Allergies Allergy/AdvReac Type Severity Reaction Status Date / Time lisinopril Allergy Mild cough Verified 12/01/22 12:57 atorvastatin Allergy Unknown unknown Verified 12/01/22 12:57 pentazocine [From Talwin] AdvReac Mild cough Verified 12/01/22 12:57 [facility] Anesthesia Medical History Abdominal hernia Acute bacterial sinusitis Chronic kidney disease, stage 3 (moderate) Constipation Diabetes mellitus, type II Patient is currently controlled with oral medications. Her last A1C in 08/24 was 6.9. Encounter for surgical aftercare following surgery of genitourinary system Essential hypertension GERD (gastroesophageal reflux disease) Gout Lower respiratory infection Mixed hyperlipidemia Murmur Postherpetic neuralgia Restless legs syndrome Sinusitis Vaginal prolapse Vitamin D deficiency Surgical History H/O left nephrectomy History of anterior colporrhaphy 03/26/21 History of colonoscopy 2016 S/P bladder repair over 40 years ago, [place] S/P hysterectomy S/P left knee arthroscopy Family History Brother Diabetes Hypertension Heart disease Family/Other Diabetes paternal aunt Breast cancer, Onset Age: 80 paternal aunt Father Hyperlipidemia Hypertension Heart disease Sister Stroke Daughter Thyroid condition Denies family history of Colon cancer Ovarian cancer CAD (coronary artery disease) Clotting disorder Anesthesia complication Bleeding disorder Uterine cancer Social History Smoking and tobacco status: never smoked Alcohol intake: never Adopted: No Lives independently: Yes Household members: none Housing: Apartment Marital status: / Data Anesthesia 12/01/22 13:01 BMP 12/01/22 13:01 Sodium 139 Potassium 4.0 Chloride 103 Carbon Dioxide 24 BUN 16 Creatinine 1.1 H Glucose 167 H Calcium 9.3 Cardiac Studies: Echocardiogram Ultrasound 03/19/21
[2022-12-07] VITALS (17 sets, daily range): BP systolic 122–185; BP diastolic 64–92; PULSE 48–68; RESP 16–18; TEMP 36.1–36.4; O2SAT 94–98
[2022-12-07] MEDS: sodium chloride 0.9% 1,000 ML 30 ML IV (07:11)
[2022-12-07] MEDS: acetaminophen 500 mg Tablet 1000 MG PO ×3 (07:11→22:16)
[2022-12-07] MEDS: oxyCODONE 20 mg ER (12 HR) Tablet PO (07:11)
[2022-12-07] MEDS: CELEcoxib 200 mg Capsule 400 MG PO (07:12)
[2022-12-07] MEDS: gabapentin 300 mg Capsule PO (07:12)
--- NOTE | 2022-12-07 07:40 | P.ANESUD_ITS ---
Pre-Anesthetic Update Pre-Anesthetic Assessment: Date of Surgery/Procedure: 12/07/22 Preop Nafisa gnosis: Osteoarthritis right knee Proposed Procedure: Operation Date: 12/07/22 09:00 Proposed Procedures p right total knee MARIA G arthroplasty: 10003,M17.11(Right) - Chidi Gusman MD Any changes to Pre-Anesthetic Assessment?: No Last Intake: Intake Last Liquid Date 12/06/22 Last Liquid Time 21:00 Last Solid Date 12/06/22 Last Solid Time 21:00 Vitals: Temperature 97.0 F L 12/07/22 07:00 Temperature Source Temporal Artery S can 12/07/22 07:00 Pulse Rate 68 12/07/22 07:00 Respiratory Rate 16 12/07/22 07:00 Blood Pressure 175/90 12/07/22 07:00 Blood Pressure Ayleen n 118 12/07/22 07:00 Pulse Oximetry 96 12/07/22 07:00 Oxygen Delivery Me thod 12/07/22 07:00 Exam: Pre-Anes Outpt Exam: alert, oriented x 3, clear to auscultation bilaterally and regular rate & rhythm Cardiac Studies: Echocardiogram Ultrasound 03/19/21
--- NOTE | 2022-12-07 07:41 | ANES.PROC ---
Anesthesia Procedures Procedure/Date: 12/07/22 Nerve Block ^: Nerve Block 1: Main Anesthesia: spinal anesthesia block Time Out Performed: Yes Consent: requested by attending/covering physician, from patient, from other, risks and benefits reviewed and patient agrees to proceed Nerve block location: adductor canal (R) Anesthesia monitors applied: pulse oximetry, EKG, BP cuff and oxygen Nerve block position: supine Anesthetic Used: ropivicaine 0.5% (30 ml) and with decadron (4 mg) Ultrasound used to: recognize landmarks and visualize and ID femerol nerve Nerve Stimulator Used?: No Interscalene/Femoral BLK: 4 stimuplex 21 g needle used for position and inplane approach, visualize local anesthetic spread and no vascular puncture identified Injection: neg aspiration of heme Patient Tolerated Procedure: well Complications: none
[2022-12-07] MEDS: ceFAZolin 2,000 MG in sodium chloride 0.9% (plus) 50 ML 100 MG IV ×2 (09:06→18:07)
--- NOTE | 2022-12-07 09:06 | P.HP_ITS ---
Same Day Surgery H&P Indication for Procedure/HPI DATE OF PROCEDURE: December 07, 2022 CHIEF COMPLAINT/INDICATIONFOR SURGICAL PROCEDURE: Osteoarthritis right knee here for total knee PREOP DIAGNOSIS: Osteoarthritis right knee PLANNED PROCEDURE: Operation Date: 12/07/22 09:00 Proposed Procedures p right total knee MARIA G arthroplasty: 60948,M17.11(Right) - Chidi Gusman MD [place] 7-year-old female with many years of bilateral knee pain. She has had multiple injections in the right now with poor clinical response. She has s ignificant limitations in her ability to ambulate and is here to proceed with total knee arthroplasty Medications/Allergies* Allergies/Adverse Reactions Allergy/AdvReac Type Severity Reaction Status Date / Time lisinopril Allergy Mild cough Verified 12/07/22 06:57 atorvastatin Allergy Unknown unknown Verified 12/07/22 06:57 pentazocine [From Talvira] AdvReac Mild cough Verified 12/07/22 06:57 Current Medications: Generic Name Dose Route Start Last Admin Trade Name Freq PRN Reason Stop Dose Admin Sodium Chloride 1,000 mls @ 30 mls/hr 12/07/22 07:00 12/07/22 07:11 Sodium Chloride 0.9% IV 12/08/22 06:59 30 mls/hr .Q24H PING Administration Pertinent History/Comorbid Conditions* Medical History (Updated 10/28/22 @ 17:22 by Chidi Gusman MD) Abdominal hernia Acute bacterial sinusitis Chronic kidney disease, stage 3 (moderate) Constipation Diabetes mellitus, type II Patient is currently controlled with oral medications. Her last A1C in 08/24 was 6.9. Encounter for surgical aftercare following surgery of genitourinary system Essential hypertension GERD (gastroesophageal reflux disease) Gout Lower respiratory infection Mixed hyperlipidemia Murmur Postherpetic neuralgia Restless legs syndrome Sinusitis Vaginal prolapse Vitamin D deficiency Surgical History (Updated 08/05/21 @ 14:50 by Morales Truong MD) H/O left nephrectomy History of anterior colporrhaphy 03/26/21 History of colonoscopy 2016 S/P bladder repair over 40 years ago, [place] S/P hysterectomy S/P left knee arthroscopy Family History (Updated 01/21/21 @ 14:54 by Andie Machado RN) Diabetes Brother Family/Other paternal aunt Heart disease Brother Father Hyperlipidemia Father Breast cancer Family/Other, Onset Age: 80 paternal aunt Hypertension Brother Father Thyroid condition Daughter Stroke Sister Denies family history of Colon cancer Ovarian cancer CAD (coronary artery disease) Clotting disorder Anesthesia complication Bleeding disorder Uterine cancer Social History Smoking and tobacco status: never smoked Alcohol intake: never Adopted: No Lives independently: Yes Household members: none Housing: Apartment Marital status: / Pertinent Exam Findings alert, oriented x 3, clear to auscultation bilaterally, regular rate & rhythm and operative site marked Right knee motion is from 10 degrees short of full extension to 90 degrees. She has sharp tenderness over her medial joint line Her cruciate collateral ligaments are stable Her patella tracks well. She has a strong right dorsalis pedis pulse Flexes and extends right toes and ankle without any motor deficit Recommendations Surgery/Procedure today Coding Level of Care Code Acute Code for 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
[2022-12-07] MEDS: tranexamic acid 1,000 mg/10mL SDV 1000 MG IV (09:25)
[2022-12-07] MEDS: tranexamic acid 1,000 mg/10mL SDV 1000 MG XX (09:53)
[2022-12-07] MEDS: EPINEPHrine 1 mg/mL INJ XX (09:53)
[2022-12-07] MEDS: ketorolac 30 mg/mL INJ XX (09:53)
[2022-12-07] MEDS: sodium chloride 0.9% 100 mL Bag XX (09:55)
--- NOTE | 2022-12-07 11:02 | P.OP_ITS ---
Operative Report Date of procedure: December 07, 2022 Pre-op diagnosis: Preop Diagnosis Osteoarthritis right knee Post-op diagnosis: same Post-op diagnosis: Same Post-op findings: Same Procedure done: Right total knee arthroplasty Implants: Bushra Triathalon total knee arthroplasty components were used includin) Size 5 triathalon cruciate retaining femoral component 2) Size 6 vTritanium tibial component 3) Size 5/10 mm thickness CS tibial bearing insert Pathology: none sent Surgeon: Chidi Gusman Pricing Analyst: Lauri Pandey Pricing Analyst: The nurse practitioner the nurse practitioner assisted with critical portions of the case including positioning, draping, exposure, component implantation, closure and dressing application and is present through the entirety of the case. Anesthesia: Nerve Block (Spinal, adductor canal block) Estimated blood loss (mL): 50 Findings: The patient eburnated bone over the medial femoral condyle and medial tibial plateau. She had significant trochlear chondromalacia really minimal loss about the patella. Condition: stable Disposition: PACU Procedure: The patient was taken to the operating room. Patient was given 1 g of tranexamic acid and 2 g of Ancef. The above anesthesia provided by the anesthesia service. A timeout was performed. The patient was prepped and draped in the usual fashion with the lower extremity exposed. A anterior incision was made, midline, from a point proximal to the patella to the distal tibial tubercle. The knee was entered through a medial parapatellar approach. The patella could be displaced laterally and the knee flexed. The patellar fat pad was resected to provide better visibility. Retractors were placed medially and laterally adjacent to the tibial plateau. At a point approximately 8 cm above the patella, 2 small incisions were made with a scalpel blade and 2 long threaded pins were placed into the anterior medial femur engaging both cortices. The femoral arrays were placed over these pins and secured. At a point 8 cm distal to the tibial tubercle. 2 shorter bicortical threaded pins were placed across the anterior medial tibia and the tibial arrays placed. A checkpoint was made just proximal and medial to the medial femoral condyle and just medial to the tibial plateau. Small osteotomes were placed in the joint in both flexion and extension to determine ligamentous laxity. To accommodate laxity medially more so in flexion than extension the tibia was cut and additional 2 degrees of valgus and the femur externally rotated 1 degree.. The MARIA G robot was then introduced to the field and the femur and tibia cut in accordance with our plan. he and Nephew Fastseal was then used to provide hemostasis, particularly about the posterior capsule. A trial with the above components provided excellent stability and full range of motion. The femur was then prepared for the femoral pegs of the component in the tibia for the tibial component. The femur and tibia were then press-fit into place. An osteotome was used to remove the lateral 8 mm of the patella to minimize chances of later impingement. A neurectomy was accomplished circumferentially about the patella with electrocautery and lateral osteophytes removed. Surfaces were cleaned with a gentamicin solution. The femur and tibia were then press-fit into place. The posterior capsule and collateral ligaments were then injected with a solution of 100 mL of 0.2% ropivacaine, 1 mL of a 1:1000 epinephrine solution, 30 mg of Toradol, and 1 g of tranexamic acid. Final polyethylene component was then snapped into place into the tibia. The extensor retinaculum was closed with a running 1 Stratafix interrupted 1 Ethibond. The subcutaneous tissues were closed with 2-0 Vicryl and the skin was closed with a running 4-0 Stratafix. The wound was covered with a Dermabond Prineo dressing. It was covered with 4xrs and a compressive Tubigauze was applied. The patient was taken to recovery room in stable condition.
--- NOTE | 2022-12-07 11:09 | XR_ITS ---
WS: [id number] XR knee RT 1-2V [id number] REASON FOR EXAM: Right Total Knee arthroplasty FINDINGS: Right knee arthroplasty. Tibial and femoral components are in proper position and alignment and intact. No significant bone abnormality. XR/XR knee RT 1-2V [id number] IMPRESSION: Right knee arthroplasty without abnormality.
[2022-12-07] MEDS: sodium chloride 0.9% 1,000 ML 100 ML IV ×2 (12:31→19:34)
[2022-12-07 13:06] LABS: Glucose Point of Care 226 mg/dL (70-110)
[2022-12-07] MEDS: insulin lispro 100 unit/1 mL SUBCUT ×3 (13:07→21:43)
--- NOTE | 2022-12-07 13:15 | ANE.PACU2 ---
Inpatient post-anesthesia follow up: Airway intact: Yes Vital signs: Temperature 97.2 F Pulse Rate 53 Respiratory Rate 16 Blood Pressure 166/67 Pulse Oximetry 98 Oxygen Delivery Me thod Room Air Oxygen Flow Rate 6 Fraction of Inspir ed Oxygen Hydration adequate: Yes Nausea and vomiting: No Pain level: 1 Mental status: Baseline
[2022-12-07 16:45] LABS: Glucose Point of Care 171 mg/dL (70-110)
[2022-12-07] MEDS: sennosides-docusate Tablet 2 TAB PO (18:07)
[2022-12-07] MEDS: oxyCODONE 5 mg IR Tab/Cap PO (18:09)
[2022-12-07] MEDS: CELEcoxib 200 mg Capsule PO (19:34)
[2022-12-07 21:07] LABS: Glucose Point of Care 194 mg/dL (70-110)
--- NOTE | 2022-12-07 22:19 | PC.NURSE ---
Patient rates pain 5/10 at this time. Patient offered PRN Oxycodone. Patient states can we just try the Tylenol for now?
[2022-12-08] VITALS: BP 122/68; PULSE 57; RESP 17; O2SAT 98
[2022-12-08 00:07] VITALS: RESP 16
[2022-12-08] MEDS: oxyCODONE 5 mg IR Tab/Cap PO ×2 (00:07→05:54)
[2022-12-08] MEDS: ceFAZolin 2,000 MG in sodium chloride 0.9% (plus) 50 ML 100 MG IV ×2 (00:08→07:59)
[2022-12-08 04:00] VITALS: BP 135/68; PULSE 60; RESP 17; TEMP 36.4; O2SAT 99
[2022-12-08 05:08] LABS: Hemoglobin 13.4 g/dL (11.5-15.3)
[2022-12-08 05:54] VITALS: RESP 18
[2022-12-08] MEDS: acetaminophen 500 mg Tablet 1000 MG PO (05:54)
[2022-12-08] MEDS: ondansetron 2 mg/ML SDV 2 mL 4 MG IVP (06:43)
--- NOTE | 2022-12-08 07:31 | PM.DCS ---
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 Her last A1C in 08/24 was 6.9. Reason for Visit Reason for Visit: M17.11 Hospital Course Hospital Course The patient tolerated surgery well. They remained hemodynamically stable. They was begun on aspirin and foot pumps for DVT prophylaxis. Blood sugars were controlled with sliding scale insulin. The patient was mobilized with therapy beginning the day of surgery and by the first postoperative day independent with the walker. As the pain was adequately controlled and they were fully mobile they were discharged home. Physical Exam Narrative: On the day of discharge the knee incision was clean. They had no drainage. There is minimal swelling in the thigh and knee and the calf. No distal neurovascular deficits were noted Discharge Data Studies Completed and Pending Completed Studies During Hospitalization Category Date Time Status XR knee RT 1-2V [id number] Routine Exams 12/07/22 11:09 Completed Radiology Impressions Knee X-Ray 12/07/22 11:09 IMPRESSION: Right knee arthroplasty without abnormality. Laboratory Results Hgb 13.4 g/dL (11.5-15.3) 12/08/22 04:46 Sodium 139 mmol/L (136-145) 12/01/22 13:01 Potassium 4.0 mmol/L (3.5-5.1) 12/01/22 13:01 Chloride 103 mmol/L (98-107) 12/01/22 13:01 Carbon Dioxide 24 mmol/L (22-29) 12/01/22 13:01 Anion Gap 16.0 (5-19) 12/01/22 13:01 BUN 16 mg/dL (8-23) 12/01/22 13:01 Creatinine 1.1 mg/dL (0.5-0.9) H 12/01/22 13:01 GFR Calculation Not Reportable 12/01/22 13:01 Glucose 167 mg/dL (65-115) H 12/01/22 13:01 POC Glucose 194 mg/dL (70-110) H 12/07/22 20:57 Calculated Osmolality 293 mOsm/kg (285-295) 12/01/22 13:01 Calcium 9.3 mg/dL (8.5-10.5) 12/01/22 13:01 Vitals Last Vital Signs Temp 97.5 F L 12/08/22 04:00 Pulse 60 12/08/22 04:00 Resp 18 12/08/22 05:54 BP 135/68 12/08/22 04:00 Pulse Ox 99 12/08/22 04:00 O2 Del Method 12/08/22 04:00 O2 Flow Rate 6 12/07/22 11:13 Discharge Plan Discharge Patient Disposition: Home Condition: Stable Prescriptions: New oxycodone 5 mg Tablet 5 mg PO Q4H PRN (Reason: Moderate Pain) 7 Days Qty: 30 0RF celecoxib 200 mg Capsule 200 mg PO Q12H 14 Days Qty: 28 0RF acetaminophen 500 mg Tablet 1,000 mg PO Q8H 14 Days Qty: 84 0RF Continued (DME) Diabetic shoes with 3 set of insoles See Rx Instructions .Route .MEDSUPPLY Qty: 1 0RF Rx Instructions: As directed by HOME atenolol 50 mg tablet 50 mg PO DAILY Qty: 90 1RF Rx Instructions: Take 1 tablet by mouth once daily furosemide 20 mg tablet 20 mg PO DAILY Qty: 90 1RF Rx Instructions: TAKE 1 TABLET BY MOUTH ONCE DAILY IN THE MORNING FOR EDEMA Januvia 50 mg tablet 50 mg PO DAILY Qty: 90 1RF Rx Instructions: Replacing combination januvia/metformin w just januvia (DME) Custom Insoles See Rx Instructions .Route .MEDSUPPLY Qty: 1 0RF Rx Instructions: As directed (DME) Contour Test Strips Strip See Rx Instructions .ROUTE .MEDSUPPLY Qty: 100 5RF Rx Instructions: use to check blood sugar daily (DME) blood-glucose meter Kit See Rx Instructions .Route Qty: 1 0RF Rx Instructions: use to check blood sugar daily (DME) blood sugar diagnostic Strip See Rx Instructions .ROUTE .MEDSUPPLY Qty: 100 6RF Rx Instructions: one touch ultra test strips (DME) lancets [BD Ultra Fine Lancets] 33 gauge misc See Rx Instructions .Route Qty: 100 5RF Rx Instructions: use to check blood sugar daily Discharge Orders: Discharge Order (Routine); Ordered 12/08/22 Ordered By: Chidi Mcdonough Other Ambulatory Orders: DME: Walker (Order) Location: None Selected Ordered By: Chidi Mcdonough Referrals: Chidi Mcdonough MD [Physician] - 12/11/22 8:30 am Discharge Diet: Advance as tolerated Discharge Activity: Limit activity as instructed Patient Instructions: Opioid Safety Activity Restrictions/Additional Instructions: Okay to shower Keep Tubigauze sleeve in place for swelling. Okay to remove for hygiene. Apply FirstIce up to 20 min/hr for pain and swelling Take Celebrex twice a day for the next 15 days for pain , discontinue other anti-inflammatories Take Neurontin twice a day for 7 days. Take Tylenol 500mg (2 tabs) as needed 3 times a day for mild pain take oxycodone for breakthrough pain. Exercises per physical therapy. May weight-bear as tolerated on total knee arthroplasty IF HAVE ANY PROBLEMS OR QUESTIONS CALL [facility] AT AND ASK TO HAVE DR. MCDONOUGH PAGED. Discharge Attestations Time Spent in Discharge Care*: other Quality Metrics Clinical Quality Measures [ No reported AMI, CVA or VTE this stay] Coding Level of Care Code Acute Code for Chg Fwd Diagnoses Status post right knee replacement Z96.651 Osteoarthritis of right knee M17.11 Diabetes mellitus, type II E11.9 Diabetes mellitus termite control servicer insulin use: without detention use Diabetes mellitus complication status: without complication
[2022-12-08 07:36] LABS: Glucose Point of Care 170 mg/dL (70-110)
[2022-12-08 07:58] VITALS: BP 144/72; PULSE 68; O2SAT 98
[2022-12-08] MEDS: CELEcoxib 200 mg Capsule PO (07:58)
[2022-12-08] MEDS: sennosides-docusate Tablet 2 TAB PO (07:59)
[2022-12-08] MEDS: FUROsemide 20 mg Tablet PO (07:59)
[2022-12-08] MEDS: insulin lispro 100 unit/1 mL SUBCUT (07:59)
[2022-12-08] MEDS: atenolol 50 mg Tablet PO (07:59)
--- NOTE | 2022-12-08 10:20 | PC.CHAP ---
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 [] Patient/Family/Request visit [] Outpatient visit [] Follow-up visit [] Physician referral [] Code/Alert [x] Routine visit [] Staff referral [] Actively dying [] Patient sleeping [] Family support [] [] Out of room [] Palliative care [] [] Receiving care in room [] Pre-surgical visit [] Trauma [] Long length of stay [] ICU visit [] Other: Relational/Emotional Strength [] Patient feels connected with others/family/visitors/staff [] Distress [] Loneliness/isolation [] Abandonment Spirituality of Patient [] Person of Natalie [] Attends Advent of their Natalie [] Believes in Prayer [] Reads Bible or Baptist materials [] There are Spiritual issues to be addressed Cleaning Porter Interventions [x] Prayer [] Active listening [] Non-anxious presence [] Spiritual/emotional support [] Crisis/trauma care [] Spiritual counseling [] Bereavement support [] Provided bereavement packet [] Provided Bible/devotional materials [] Provided toy/stuffed animal, coloring book to patient or family member [] Provided Communion [] Anointing/[place] [] Salvation [] Completed spiritual assessment [] Other: Impact on Illness or Injury [] Angry [] Fearful [] Anxious [] Often cries [] Exhaustion [] Unable to work [] Unable to attend synagogue [] Unable to walk/stand [] Unable to read [] Unable to drive [] Unable to eat/drink [] Unable to sleep [] Unable to be with family [] Patient intubated [] Other: Summary Time spent with patient
[2022-12-08 10:59] VITALS: BP 144/72; PULSE 68; RESP 18; TEMP 36.3; O2SAT 98
== END 2022-12-08 11:00 | disposition home or self-care (01) ==
LOC: MEDSURG 15:06
PROVIDERS: Anesthesiology; Admitting Provider Orthopaedic Surgery; PCP Nurse Practitioner Family; Visit Provider Orthopaedic Surgery
PROC: (CPT 27447; principal; 2022-12-07 09:00)
DX: M17.11 Unilateral primary osteoarthritis, right knee (principal); I12.9 Hypertensive chronic kidney disease with stage 1 through stage 4 chronic kidney disease, or unspecified chronic kidney disease; N18.30 Chronic kidney disease, stage 3 unspecified; E11.22 Type 2 diabetes mellitus with diabetic chronic kidney disease; E78.2 Mixed hyperlipidemia; Z79.84 Long term (current) use of oral hypoglycemic drugs; Z96.652 Presence of left artificial knee joint
CPT/HCPCS: 27447; 36416; 73560; 80048; 82962; 85018; 96372; 97110; 97116; 97161; 97165; 97530; C1776; G0378; J0171; J0690; J1100; J1580; J1815; J1885; J2405; J2704; J2795; J7030

== ENCOUNTER → 2022-12-11 08:11 | Outpatient (BNVA) | payer MEDICARE, MEDICAID, SELFPAY | PROVIDERS: PCP Nurse Practitioner Family; Visit Provider Nurse Practitioner Family | DX: Z96.651 Presence of right artificial knee joint (principal) | CPT/HCPCS: 99024 ==

== ENCOUNTER → 2023-01-01 08:09 | Outpatient (BNVA) | payer MEDICARE, MEDICAID, SELFPAY | PROVIDERS: PCP Nurse Practitioner Family; Visit Provider Nurse Practitioner Family | DX: Z96.651 Presence of right artificial knee joint (principal) | CPT/HCPCS: 73560; 73565; 99024 ==

== ENCOUNTER 2023-01-04 20:23 | Outpatient (RCR) | payer MEDICARE, MEDICAID, SELFPAY | END 2023-02-03 23:59 | disposition home or self-care (01) | LOC: WPT 20:23 | PROVIDERS: Visit Provider Orthopaedic Surgery | DX: Z47.1 Aftercare following joint replacement surgery (principal); Z96.651 Presence of right artificial knee joint | CPT/HCPCS: 97110; 97112; 97163; 97530 ==

== ENCOUNTER 2023-02-04 06:00 | Outpatient (RCR) | payer MEDICARE, MEDICAID, SELFPAY | END 2023-03-05 23:59 | disposition home or self-care (01) | LOC: WPT 06:00 | PROVIDERS: Visit Provider Orthopaedic Surgery | DX: Z47.1 Aftercare following joint replacement surgery (principal); Z96.651 Presence of right artificial knee joint | CPT/HCPCS: 97110; 97112; 97530 ==

== ENCOUNTER 2023-03-06 06:00 | Outpatient (RCR) | payer MEDICARE, MEDICAID, SELFPAY | END 2023-04-05 23:59 | disposition home or self-care (01) | LOC: WPT 06:00 | PROVIDERS: PCP Nurse Practitioner Family; Visit Provider Orthopaedic Surgery | DX: Z47.1 Aftercare following joint replacement surgery (principal); Z96.651 Presence of right artificial knee joint | CPT/HCPCS: 97110; 97112; 97530 ==

== ENCOUNTER 2023-03-29 10:35 | Outpatient (CLI) | payer MEDICARE, MEDICAID, SELFPAY ==
--- NOTE | 2023-03-29 10:43 | XRR_ITS ---
PROCEDURE INFORMATION: Exam: XR Cervical Spine Exam date and time: 03/29/2023 10:51 AM Age: 78 years old Clinical indication: Neck pain; Additional info: M99.01 - segmental and somatic dysfunction of cervical re. . . TECHNIQUE: Imaging protocol: Radiologic exam of the cervical spine. Views: 2 or 3 views. COMPARISON: CR XR chest 2V* [id number] 02/12/2021 10:53 AM FINDINGS: Bones/joints: No acute fracture. Normal alignment. Moderate to severe intervertebral disc space narrowing, osteophytosis, and uncovertebral spurring at C5-6. Moderate intervertebral disc space narrowing and uncovertebral spurring at C3-C4 and C6-C7 with osteophyte formation at C6-C7. Mild multilevel facet arthrosis. Soft tissues: Unremarkable. Other findings: Edentulousness. XR/XR cervical spine 3V* [id number] IMPRESSION: 1. No acute fracture or traumatic listhesis. 2. Multilevel, multifactorial cervical spine degenerative changes greatest at C5-C6.
== END 2023-03-29 10:36 | disposition home or self-care (01) ==
PROVIDERS: PCP Nurse Practitioner Family; Visit Provider Nurse Practitioner Family
DX: M99.01 Segmental and somatic dysfunction of cervical region (principal); M47.812 Spondylosis without myelopathy or radiculopathy, cervical region; E11.9 Type 2 diabetes mellitus without complications
CPT/HCPCS: 72040; 80053; 80061; 81000; 83036; 85025

== ENCOUNTER → 2023-04-13 10:18 | Outpatient (BNVA) | payer MEDICARE, MEDICAID, SELFPAY | PROVIDERS: PCP Nurse Practitioner Family; Visit Provider Nurse Practitioner Family | DX: Z96.651 Presence of right artificial knee joint (principal) | CPT/HCPCS: 73560; 73565; 99213 ==

== ENCOUNTER → 2023-05-04 07:32 | Outpatient (BNVA) | payer MEDICARE, MEDICAID, SELFPAY | PROVIDERS: PCP Nurse Practitioner Family; Visit Provider Podiatrist Foot & Ankle Surgery | DX: E11.42 Type 2 diabetes mellitus with diabetic polyneuropathy (principal); M25.872 Other specified joint disorders, left ankle and foot; I73.9 Peripheral vascular disease, unspecified; M20.41 Other hammer toe(s) (acquired), right foot; M20.42 Other hammer toe(s) (acquired), left foot; M21.621 Bunionette of right foot; M21.622 Bunionette of left foot | CPT/HCPCS: 99214 ==

== ENCOUNTER → 2023-05-25 09:50 | Outpatient (BNVA) | payer MEDICARE, MEDICAID, SELFPAY | PROVIDERS: PCP Nurse Practitioner Family; Visit Provider Nurse Practitioner Family | DX: R79.89 Other specified abnormal findings of blood chemistry (principal); E03.9 Hypothyroidism, unspecified | CPT/HCPCS: 84443 ==

== ENCOUNTER 2023-07-14 07:39 | Outpatient (CLI) | payer MEDICARE, MEDICAID, SELFPAY ==
[2023-07-14 07:43] VITALS: BMI 30.7
--- NOTE | 2023-07-14 07:53 | NMCV_ITS ---
NM alecia perf SPECT r/s* [id number] Renuka Boyd Age: 78 Gender: F : 1945 Exam Date: 07/14/2023 07:53 Ordering Phys: Alis BatemanC EMS DRIVER Technologist: KIMO Benitez Exam Location: [facility] Indications: CHEST PAIN STRESS TEST Please see separate stress test report in [facility] for full findings IMAGE PROTOCOL Rest/Stress 1 Lexiscan Day Radiopharmaceutical Dose (mCi) Administration Site Administered by Rest: Tc-99m 10.6 IV KIMO Franklin Sestamibi Stress:Tc-99m 32.7 IV KIMO Franklin Sestamibi Rest: 14-Jul-2023 60 Discovery 630 Stress: 14-Jul-2023 30 Discovery 630 0.4mg Lexiscan. Supine position only as patient was unable to lay prone. SPECT RESULTS Technical Quality: Excellent Raw Data Analysis: Normal Image Corrections: No attenuation or motion correction applied Summed Stress Score: 2 Summed Rest Score: 1 Summed Difference Score: 2 PERFUSION FINDINGS A small area of moderately decreased tracer uptake was noted in the mid inferolateral region with some reversibility FUNCTIONAL RESULTS (calculated via Gated SPECT) Stress Image LV EF (%): 72 Stress EDV (mL):75 TID: 1.02 Stress ESV (mL):21 FUNCTIONAL FINDINGS: Segmental wall motion analysis revealing mild hypokinesia of the LV apex IMPRESSIONS 1. Myocardial perfusion imaging revealing a small area of reversible defect in the mid inferolateral region, suggesting ischemia in the distribution of the left circumflex artery. 2. Normal ejection fraction 72%. 3. LV wall motion analysis revealing mild hypokinesia of the LV apex. 4. Normal LV volume. No similar previous studies are available for comparison Dr Marybel Katz MD [facility] (Electronically Signed) Final Date: 14 July 2023 20:54 S
--- NOTE | 2023-07-14 07:53 | ECG_ITS ---
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 Interpretive Statements NAME OF STUDY: LEXISCAN SESTAMIBI STRESS TEST INDICATION: Chest Pain PROCEDURE: At the baseline, the EKG revealed normal sinus rhythm with a poor R wave progression. Possible old septal IN. QS in the high lateral leads suggesting old lateral wall IN. The baseline heart was 76 bpm with a blood pressue of 148/85 mm of Hg Lexiscan was infused over a period of 20 seconds. A total of 0.4 milligrams of Lexiscan was infused. The stress phase was continued for a total of 5 minutes. Heart rate at the end of the stress phase was 84 bpm with a blood pressure 161/83 mm of Hg. The EKG at the peak infusion revealed no significant changes. Frequent PVCs were noted during the infusion and also during the recovery phase. Sestamibi was injected 20 seconds after the Lexiscan infusion. Heart rate at the end of the recovery phase was 85 bpm with a blood pressure of 176/83 mm of Hg. CONCLUSION: 1. No significant EKG changes with the LexiScan infusion 2. No LexiScan induced chest pain or cardiac arrhythmia 3. Normal blood pressure and heart rate response 4. Sestamibi/sestamibi perfusion scan pending; see separate report. Electronically Signed On 07-17-2023 13:41:05 TEAM ASSISTANT by Marybel Katz M.D. [id number]
[2023-07-14] MEDS: regadenoson 0.4 Mg/5 ml Syringe IVP (09:39)
[2023-07-14 10:07] VITALS: BP 133/84; PULSE 66
== END 2023-07-14 07:40 | disposition home or self-care (01) ==
LOC: CDL 07:40
PROVIDERS: PCP Nurse Practitioner Family; Visit Provider Nurse Practitioner Family
DX: R07.9 Chest pain, unspecified (principal)
CPT/HCPCS: 36415; 78452; 80053; 80061; 83036; 93017; 96374; A9500; J2785

== ENCOUNTER → 2023-07-15 11:32 | Outpatient (BNVA) | payer MEDICARE, MEDICAID, SELFPAY | PROVIDERS: PCP Nurse Practitioner Family; Visit Provider Student in an Organized Health Care Education/Training Program | DX: M25.561 Pain in right knee; Z96.651 Presence of right artificial knee joint | CPT/HCPCS: 73560; 73565; 99213 ==

== ENCOUNTER → 2023-08-11 13:54 | Outpatient (BNVA) | payer MEDICARE, MEDICAID, SELFPAY | PROVIDERS: PCP Nurse Practitioner Family; Visit Provider Nurse Practitioner Family | DX: R35.0 Frequency of micturition (principal) | CPT/HCPCS: 81000 ==

== ENCOUNTER → 2023-08-25 11:08 | Outpatient (BNVA) | payer MEDICARE, MEDICAID, SELFPAY | PROVIDERS: PCP Nurse Practitioner Family; Visit Provider Nurse Practitioner Family | DX: E87.5 Hyperkalemia (principal); E11.9 Type 2 diabetes mellitus without complications; R60.9 Edema, unspecified | CPT/HCPCS: 80048 ==

== ENCOUNTER → 2023-10-12 12:46 | Outpatient (BNVA) | payer MEDICARE, MEDICAID, SELFPAY | PROVIDERS: PCP Nurse Practitioner Family; Visit Provider Student in an Organized Health Care Education/Training Program | DX: M17.12 Unilateral primary osteoarthritis, left knee (principal); Z96.651 Presence of right artificial knee joint | CPT/HCPCS: 99213 ==

== ENCOUNTER → 2023-11-18 13:58 | Outpatient (BNVA) | payer MEDICARE, MEDICAID, SELFPAY | PROVIDERS: PCP Nurse Practitioner Family; Visit Provider Physician Assistant | DX: M17.12 Unilateral primary osteoarthritis, left knee (principal); Z96.651 Presence of right artificial knee joint | CPT/HCPCS: 20610; 99213; J7318 ==

== ENCOUNTER → 2023-12-01 10:22 | Outpatient (BNVA) | payer MEDICARE, MEDICAID, SELFPAY | PROVIDERS: PCP Nurse Practitioner Family; Visit Provider Nurse Practitioner Family | DX: I10 Essential (primary) hypertension (principal); E11.9 Type 2 diabetes mellitus without complications; M85.80 Other specified disorders of bone density and structure, unspecified site | CPT/HCPCS: 80053; 80061; 81000; 82306; 83036 ==

== ENCOUNTER → 2023-12-28 09:00 | Outpatient (BNVA) | payer MEDICARE, MEDICAID, SELFPAY | PROVIDERS: PCP Nurse Practitioner Family; Visit Provider Podiatrist Foot & Ankle Surgery | DX: M20.41 Other hammer toe(s) (acquired), right foot (principal); M20.42 Other hammer toe(s) (acquired), left foot; M21.621 Bunionette of right foot; M21.622 Bunionette of left foot; E11.42 Type 2 diabetes mellitus with diabetic polyneuropathy; M25.872 Other specified joint disorders, left ankle and foot; I73.9 Peripheral vascular disease, unspecified | CPT/HCPCS: 99213 ==

== ENCOUNTER → 2023-12-29 10:29 | Outpatient (BNVA) | payer MEDICARE, MEDICAID, SELFPAY | PROVIDERS: PCP Nurse Practitioner Family; Referring Provider Nurse Practitioner Family; Visit Provider Nurse Practitioner Family | DX: D48.5 Neoplasm of uncertain behavior of skin (principal); L57.8 Other skin changes due to chronic exposure to nonionizing radiation; L81.4 Other melanin hyperpigmentation; D22.39 Melanocytic nevi of other parts of face; Z85.828 Personal history of other malignant neoplasm of skin | CPT/HCPCS: 11102; 99203 ==

== ENCOUNTER → 2024-01-24 13:42 | Outpatient (BNVA) | payer MEDICARE, MEDICAID, SELFPAY | PROVIDERS: PCP Nurse Practitioner Family; Visit Provider Dermatology | DX: C44.311 Basal cell carcinoma of skin of nose (principal) | CPT/HCPCS: 99213 ==

== ENCOUNTER → 2024-02-02 15:18 | Outpatient (BNVA) | payer MEDICARE, MEDICAID, SELFPAY | PROVIDERS: PCP Nurse Practitioner Family; Visit Provider Podiatrist Foot & Ankle Surgery | DX: M79.671 Pain in right foot (principal); E11.42 Type 2 diabetes mellitus with diabetic polyneuropathy; I73.9 Peripheral vascular disease, unspecified | CPT/HCPCS: 73630; 99213 ==

== ENCOUNTER → 2024-02-10 11:17 | Outpatient (BNVA) | payer MEDICARE, MEDICAID, SELFPAY | PROVIDERS: PCP Nurse Practitioner Family; Visit Provider Nurse Practitioner Family | DX: M79.671 Pain in right foot (principal); M1A.09X0 Idiopathic chronic gout, multiple sites, without tophus (tophi); Z79.899 Other long term (current) drug therapy | CPT/HCPCS: 80053; 84550; 85025 ==

== ENCOUNTER → 2024-02-16 10:28 | Outpatient (BNVA) | payer MEDICARE, MEDICAID, SELFPAY | PROVIDERS: PCP Nurse Practitioner Family; Visit Provider Podiatrist Foot & Ankle Surgery | DX: M79.671 Pain in right foot (principal); E11.42 Type 2 diabetes mellitus with diabetic polyneuropathy; I73.9 Peripheral vascular disease, unspecified | CPT/HCPCS: 73630; 99213 ==

== ENCOUNTER → 2024-02-28 08:02 | Outpatient (BNVA) | payer MEDICARE, MEDICAID, SELFPAY | PROVIDERS: PCP Nurse Practitioner Family; Visit Provider Dermatology | DX: C44.311 Basal cell carcinoma of skin of nose (principal) | CPT/HCPCS: 15260; 17311 ==

== ENCOUNTER → 2024-03-28 14:47 | Outpatient (BNVA) | payer MEDICARE, MEDICAID, SELFPAY | PROVIDERS: PCP Nurse Practitioner Family; Visit Provider Dermatology | DX: Z48.817 Encounter for surgical aftercare following surgery on the skin and subcutaneous tissue (principal); Z85.828 Personal history of other malignant neoplasm of skin; L98.8 Other specified disorders of the skin and subcutaneous tissue; L82.1 Other seborrheic keratosis | CPT/HCPCS: 99213 ==

== ENCOUNTER → 2024-04-06 09:40 | Outpatient (BNVA) | payer MEDICARE, MEDICAID, SELFPAY | PROVIDERS: PCP Nurse Practitioner Family; Visit Provider Nurse Practitioner Family | DX: I10 Essential (primary) hypertension (principal); M1A.09X0 Idiopathic chronic gout, multiple sites, without tophus (tophi); E11.9 Type 2 diabetes mellitus without complications | CPT/HCPCS: 80053; 80061; 83036; 84550 ==

== ENCOUNTER → 2024-04-27 14:08 | Outpatient (BNVA) | payer MEDICARE, MEDICAID, SELFPAY | PROVIDERS: PCP Nurse Practitioner Family; Visit Provider Dermatology | DX: Z85.828 Personal history of other malignant neoplasm of skin (principal); Z48.817 Encounter for surgical aftercare following surgery on the skin and subcutaneous tissue; L81.4 Other melanin hyperpigmentation; L82.1 Other seborrheic keratosis | CPT/HCPCS: 99213 ==

== ENCOUNTER → 2024-05-05 10:03 | Outpatient (BNVA) | payer MEDICARE, MEDICAID, SELFPAY | PROVIDERS: PCP Nurse Practitioner Family; Visit Provider Nurse Practitioner Family | DX: E87.5 Hyperkalemia (principal); E11.42 Type 2 diabetes mellitus with diabetic polyneuropathy | CPT/HCPCS: 80053; 80061 ==

== ENCOUNTER → 2024-06-01 09:40 | Outpatient (BNVA) | payer MEDICARE, MEDICAID, SELFPAY | PROVIDERS: PCP Nurse Practitioner Family; Visit Provider Physician Assistant | DX: M17.12 Unilateral primary osteoarthritis, left knee (principal); Z96.651 Presence of right artificial knee joint | CPT/HCPCS: 20610; 99213; J7318 ==

== ENCOUNTER → 2024-07-20 13:40 | Outpatient (BNVA) | payer MEDICARE, MEDICAID, SELFPAY | PROVIDERS: PCP Nurse Practitioner Family; Visit Provider Dermatology | DX: Z12.83 Encounter for screening for malignant neoplasm of skin (principal); L73.8 Other specified follicular disorders; L81.4 Other melanin hyperpigmentation; L82.1 Other seborrheic keratosis; Z85.828 Personal history of other malignant neoplasm of skin; D48.5 Neoplasm of uncertain behavior of skin | CPT/HCPCS: 11102; 99213 ==

== ENCOUNTER → 2024-08-22 13:01 | Outpatient (BNVA) | payer MEDICARE, MEDICAID, SELFPAY | PROVIDERS: PCP Nurse Practitioner Family; Visit Provider Dermatology | DX: C44.311 Basal cell carcinoma of skin of nose (principal) | CPT/HCPCS: 99213 ==

== ENCOUNTER → 2024-09-21 10:07 | Outpatient (BNVA) | payer MEDICARE, MEDICAID, SELFPAY | PROVIDERS: PCP Nurse Practitioner Family; Visit Provider Nurse Practitioner Family | DX: I10 Essential (primary) hypertension (principal); E11.9 Type 2 diabetes mellitus without complications; M85.80 Other specified disorders of bone density and structure, unspecified site | CPT/HCPCS: 80053; 80061; 82306; 83036; 84443 ==

== ENCOUNTER → 2024-09-26 09:01 | Outpatient (BNVA) | payer MEDICARE, MEDICAID, SELFPAY | PROVIDERS: PCP Nurse Practitioner Family; Visit Provider Dermatology | DX: C44.311 Basal cell carcinoma of skin of nose (principal) | CPT/HCPCS: 17311 ==

== ENCOUNTER 2024-10-10 11:49 | Emergency (ER) | payer OTHER, MEDICARE, MEDICAID, SELFPAY ==
[2024-10-10 12:30] VITALS: BP 189/94; PULSE 61; TEMP 36.7; O2SAT 97; BMI 29.6
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
[2024-10-10 15:06] VITALS: BP 170/88; PULSE 81; O2SAT 96
== END 2024-10-10 15:08 | disposition home or self-care (01) ==
PROVIDERS: Emergency Provider Emergency Medicine; PCP Nurse Practitioner Family
DX: S60.212A Contusion of left wrist, initial encounter (principal); V89.2XXA Person injured in unspecified motor-vehicle accident, traffic, initial encounter; E11.22 Type 2 diabetes mellitus with diabetic chronic kidney disease; I12.9 Hypertensive chronic kidney disease with stage 1 through stage 4 chronic kidney disease, or unspecified chronic kidney disease; N18.30 Chronic kidney disease, stage 3 unspecified; E78.5 Hyperlipidemia, unspecified
CPT/HCPCS: 73110; 99283

== ENCOUNTER → 2024-10-23 10:33 | Outpatient (BNVA) | payer MEDICARE, MEDICAID, SELFPAY | PROVIDERS: PCP Nurse Practitioner Family; Visit Provider Dermatology | DX: Z08 Encounter for follow-up examination after completed treatment for malignant neoplasm (principal); Z85.828 Personal history of other malignant neoplasm of skin | CPT/HCPCS: 99212 ==

== ENCOUNTER → 2024-11-27 11:19 | Outpatient (BNVA) | payer MEDICARE, MEDICAID, SELFPAY | PROVIDERS: PCP Nurse Practitioner Family; Visit Provider Dermatology | DX: C44.311 Basal cell carcinoma of skin of nose (principal); Z08 Encounter for follow-up examination after completed treatment for malignant neoplasm; Z85.828 Personal history of other malignant neoplasm of skin | CPT/HCPCS: 99213 ==

== ENCOUNTER → 2025-02-05 11:27 | Outpatient (BNVA) | payer MEDICARE, MEDICAID, SELFPAY | PROVIDERS: PCP Nurse Practitioner Family; Visit Provider Nurse Practitioner Family | DX: I10 Essential (primary) hypertension (principal); E11.9 Type 2 diabetes mellitus without complications; M85.80 Other specified disorders of bone density and structure, unspecified site | CPT/HCPCS: 80053; 80061; 82306; 83036 ==

== ENCOUNTER 2025-02-27 09:06 | Outpatient (CLI) | payer OTHER, MEDICAID, SELFPAY ==
[2025-02-27] MEDS: iohexol 350 mg/mL 500 mL Btl (per mL) PO (10:12)
[2025-02-27] MEDS: iohexol 350 mg/mL 500 mL Btl (per mL) IV (10:12)
--- NOTE | 2025-02-27 11:00 | CT_ITS ---
WS: [id number] CT ABDOMEN WITH CONTRAST HISTORY: R10.9 - Unspecified abdominal pain, prior LEFT nephrectomy. Contiguous single phase 5 mm axial imaging performed to the abdomen. Oral contrast has been provided. Coronal and sagittal reformats are submitted. All CT scans at [facility] use at least one of these dose optimization techniques: automated exposure control; mA and/or kV adjustment per patient size (includes targeted exams where dose is matched to clinical indication); or iterative reconstruction. IV CONTRAST: Omnipaque 350; 100 mL IV. Oral contrast: Yes. DLP: 472.86 mGy.cm COMPARISON: 07/05/2024, 11/19/2021 Lower thorax: Lung bases are clear. Heart is normal size. No hiatal hernia. Liver/biliary system: Normal size with no intrahepatic dilatation. Gallbladder: Normal. No gallstones or wall thickening. No pericholecystic fluid. Pancreas: Normal size pancreas and pancreatic duct. No adjacent inflammation. Spleen: Normal size spleen. No mass or infarct. Adrenal glands: Normal. Right kidney: 1.4 cm mid cortical cyst. Otherwise normal. No obstruction. Left kidney: Surgically absent. Aorta: Mild atherosclerosis with no aneurysm. Scattered plaque with additional areas of noncalcified plaque within the aorta. Atherosclerotic plaque extends into the celiac axis and SMA. Lymphadenopathy: None. Free fluid: None. GI tract: Normally distended stomach. Normal small bowel. Colon included within the abdomen CT demonstrates constipation and diverticular disease. Visualized appendix is normal. Not entirely included on the CT of the abdomen. Abdominal wall: Tiny umbilical hernia is stable over multiple prior CTs. There is thinning of the posterior abdominal wall musculature near the surgical site for the prior nephrectomy but no definite hernia is identified. Similar to multiple prior studies. Numerous dystrophic calcifications in the posterior soft tissues. Visualized osseous structures: L4 anterolisthesis by [address]/CT abdomen w con* [id number] IMPRESSION: 1. Very tiny fat-containing umbilical hernia stable over multiple prior years. 2. Prior LEFT nephrectomy. 3. Moderate atherosclerosis abdominal aorta and mesenteric arteries. No high-g rade stenosis or occlusion. 4. RIGHT renal cyst, 1.4 cm.
== END 2025-02-27 09:07 | disposition home or self-care (01) ==
LOC: RAD 09:09
PROVIDERS: PCP Nurse Practitioner Family; Visit Provider Nurse Practitioner Family
DX: I70.0 Atherosclerosis of aorta (principal); K55.1 Chronic vascular disorders of intestine; N28.1 Cyst of kidney, acquired; K42.9 Umbilical hernia without obstruction or gangrene; Z90.5 Acquired absence of kidney
CPT/HCPCS: 74160

== ENCOUNTER → 2025-03-14 10:08 | Outpatient (BNVA) | payer OTHER, MEDICAID, SELFPAY | PROVIDERS: PCP Nurse Practitioner Family; Visit Provider Nurse Practitioner Family | DX: L57.0 Actinic keratosis (principal); L81.4 Other melanin hyperpigmentation; L57.8 Other skin changes due to chronic exposure to nonionizing radiation; Z08 Encounter for follow-up examination after completed treatment for malignant neoplasm; Z85.828 Personal history of other malignant neoplasm of skin | CPT/HCPCS: 99214 ==

== ENCOUNTER → 2025-06-14 10:17 | Outpatient (BNVA) | payer OTHER, MEDICAID, SELFPAY | PROVIDERS: PCP Nurse Practitioner Family; Visit Provider Nurse Practitioner Family | DX: E11.9 Type 2 diabetes mellitus without complications (principal); I10 Essential (primary) hypertension; M85.80 Other specified disorders of bone density and structure, unspecified site | CPT/HCPCS: 80053; 80061; 82306; 83036 ==